=== PATIENT | female | born 1935 | race Caucasian/White ===

== ENCOUNTER 2023-05-24 17:30 | Inpatient (IN) ==
--- NOTE | 2023-05-24 18:24 | XRay Report ---
XR chest 1V portable CLINICAL HISTORY: cough, not feeling well TECHNIQUE: Single frontal radiograph of the chest was obtained. Comparison: None available at the time of this dictation. FINDINGS: An implanted pacemaker is seen. The cardiomediastinal silhouette is normal. The lungs are clear. No e vidence of pleural effusion or pneumothorax. IMPRESSION: No acute abnormalities and in particular no radiographic evidence of pneumonia. ACT 112: Negative or not required by law. Electronically signed by: Patrick Wright M.D. 05/24/2023 6:23 PM
[2023-05-24 18:27] LABS: Basophils # (auto) 0.05 K/uL (0.00-0.20); Basophils % (auto) 0.5 %; Eosinophils # (auto) 0.15 K/uL (0.00-0.50); Eosinophils % (auto) 1.6 %; Hematocrit (blood only) 43.6 % (37.0-47.0); Hemoglobin 14.7 g/dl (12.0-16.0); Immature Granulocytes # (auto) 0.06 K/uL (0.01-0.20); Immature Granulocytes % (auto) 0.6 %; Lymphocytes # (auto) 2.06 K/uL (1.20-3.40); Lymphocytes % (auto) 21.7 %; Mean Corpuscular Hemoglobin 29.2 pg (25.0-34.0); Mean Corpuscular Hgb Conc 33.7 g/dL (32.0-36.0); Mean Corpuscular Volume 86.7 fL (80.0-100.0); Mean Platelet Volume 9.7 fL (9.4-12.4); Monocytes # (auto) 0.84 K/uL (0.11-0.59); Monocytes % (auto) 8.9 %; Neutrophils # (auto) 6.32 K/uL (1.40-6.50); Neutrophils % (auto) 66.7 %; Platelet Count 345 K/uL (130-400); RDW Coefficient of Variation 12.8 % (11.5-14.5); Red Blood Count 5.03 M/uL (4.20-5.40); White Blood Count 9.48 K/ul (4.8-10.8)
[2023-05-24 18:37] LABS: Alanine Aminotransferase 16 U/L (7-52); Albumin Globulin Ratio 1.1 (0.9-2); Albumin Level 4.3 gm/dl (3.4-5.0); Alkaline Phosphatase 52 U/L (34-104); Anion Gap 5 (3-11); Aspartate Aminotransferase 22 U/L (13-39); BUN Creatinine Ratio 19.6 (10-20); Bilirubin,Total 0.6 mg/dl (0.2-1.0); Blood Urea Nitrogen 20 mg/dl (6-23); Calcium 10.8 mg/dl (8.6-10.3); Carbon Dioxide 27 mmol/L (21-32); Chloride 104 mmol/L (98-107); Est GFR (African American) 56.9 ml/min; Est GFR (Non-African American) 49.1 ml/min; Globulin 3.8 gm/dl (2.5-4.0); Glucose 108 mg/dl (70-99(Fasting)); Potassium 4.7 mmol/L (3.5-5.1); Sodium 136 mmol/L (136-145); Total Protein 8.1 gm/dl (6.0-8.3)
[2023-05-24 18:50] LABS: Base Excess VBG -0.8 mEq/L; HCO3 VBG 25 mmol/L; Oxygen Saturation VBG 96.7 %; PCO2 VBG 44 mmHg (38-50); PO2 VBG 76 mmHg; pH VBG 7.36 (7.36-7.41)
[2023-05-24 18:52] LABS: Creatine Kinase 42 U/L (26-192); Magnesium 2.2 mg/dl (1.7-2.4)
[2023-05-24] MEDS: SODIUM CHLORIDE 0.9% 1,000 ML IV SCH (18:54)
[2023-05-24 18:59] LABS: Troponin I High Sensitivity 5.7 pg/ml (0-14)
[2023-05-24 18:59] LABS: iSTAT Creatinine 1.1 mg/dl (0.6-1.3); iSTAT Hemoglobin 14.6 g/dl (12.0-16.0); iSTAT Ionized Calcium 1.21 mmol/l (1.12-1.32); iSTAT Potassium 4.5 mmol/L (3.3-5.0)
[2023-05-24 19:03] LABS: Adenovirus PCR Not Detected (NotDetected); Bordetella parapertussis PCR Not Detected (NotDetected); Bordetella pertussis PCR Not Detected (NotDetected); Chlamydia pneumoniae PCR Not Detected (NotDetected); Coronavirus 229E PCR Not Detected (NotDetected); Coronavirus CoV-2 (COVID19)PCR Not Detected (NotDetected); Coronavirus HKU1 PCR Not Detected (NotDetected); Coronavirus NL63 PCR Not Detected (NotDetected); Coronavirus OC43PCR Not Detected (NotDetected); Human Metapneumovirus PCR Not Detected (NotDetected); Influenza A PCR Not Detected (NotDetected); Influenza B PCR Not Detected (NotDetected); Mycoplasma pneumoniae PCR Not Detected (NotDetected); Parainfluenza Virus 1 PCR Not Detected (NotDetected); Parainfluenza Virus 2 PCR Not Detected (NotDetected); Parainfluenza Virus 3 PCR Not Detected (NotDetected); Parainfluenza Virus 4 PCR Not Detected (NotDetected); Respiratory Syncytial VirusPCR Not Detected (NotDetected); Rhinovirus/Enterovirus PCR Not Detected (NotDetected)
--- NOTE | 2023-05-24 19:58 | CT Scan Report ---
Exam(s): CT HEAD Without Contrast EXAM: CT Head Without Intravenous Contrast CLINICAL HISTORY: Reason for exam: ams. TECHNIQUE: Axial computed tomography images of the head/brain without intravenous contrast. CTDI is 50.58 mGy and DLP is 900.54 mGy-cm. Automated exposure control was utilized for the study. A dose lowering technique was utilized adhering to the principles of ALARA. COMPARISON: No relevant prior studies available. FINDINGS: No acute intracranial hemorrhage. No midline shift or mass effect. The territorial sapp-white matter differentiation is maintained throughout. Age-related cerebral volume loss. Periventricular and subcortical white matter hypoattenuation, consistent with chronic microangiopathy. The visualized orbits appear grossly unremarkable. The calvarium is intact. The visualized paranasal sinuses and mastoid air cells are grossly clear. IMPRESSION: No acute intracranial hemorrhage, midline shift, or mass effect. Electronically signed by: Pio Lehman MD 05/24/23 19:57 PM
[2023-05-24 20:39] LABS: Appearance Urine Clear (Clear); Bilirubin Urine Negative (Negative); Blood Urine Negative (Negative); Color Urine Yellow; Glucose Urine UA Negative (Negative); Ketones Urine Negative (Negative); Leukocyte Esterase Urine Negative (Negative); Nitrite Urine Negative (Negative); Protein Urine Negative (Negative); Specific Gravity Urine 1.018 (1.000-1.030); Urobilinogen Urine Negative (Negative); pH Urine 5.5 (4.5-7.5)
[2023-05-24] MEDS: OPTIRAY 320 125ml IV ONE (21:07)
[2023-05-24 21:12] LABS: Partial Thromboplastin Ratio 0.9; Partial Thromboplastin Time 25 Seconds (21-31); Prothrombin Time 10.9 Seconds (9.0-12.0)
--- NOTE | 2023-05-24 21:21 | CT Scan Report ---
Exam(s): CTA CHEST IV Amt: 117 ml opti 320 EXAM: CT Angiography Chest With Intravenous Contrast CLINICAL HISTORY: Reason for exam: ro pe. TECHNIQUE: Axial computed tomographic angiography images of the chest with intravenous contrast. Automated exposure control was utilized for the study. A dose lowering technique was utilized adhering to the principles of ALARA. MIP reconstructed images were created and reviewed. COMPARISON: No relevant prior studies available. FINDINGS: Pulmonary arteries: Unremarkable. No acute pulmonary embolism. Aorta: No acute findings. No thoracic aortic aneurysm. Lungs: Dependent atelectasis. No pneumonia, pleural effusion, or pneumothorax. No mass. Pleural space: See above. Heart: Cardiomegaly. No significant pericardial effusion. No evidence of RV dysfunction. Bones/joints: No acute fracture. No dislocation. Soft tissues: Unremarkable. Lymph nodes: Unremarkable. No enlarged lymph nodes. Kidneys and ureters: RIGHT upper pole renal cyst measuring 3.7 cm. Tubes, lines and devices: Pacemaker leads. IMPRESSION: 1. Dependent atelectasis. No pneumonia, pleural effusion, or pneumothorax. 2. No acute pulmonary embolism. Electronically signed by: Pio Lehman MD 05/24/23 21:20 PM
--- NOTE | 2023-05-24 21:30 | CT Scan Report ---
Exam(s): CT ABDOMEN + PELVIS With Contrast IV Amt: 117 ml opti 320 EXAM: CT Abdomen and Pelvis With Intravenous Contrast CLINICAL HISTORY: Reason for exam: llq pain. TECHNIQUE: Axial computed tomography images of the abdomen and pelvis with intravenous contrast. Automated exposure control was utilized for the study. A dose lowering technique was utilized adhering to the principles of ALARA. CONTRAST: Patient received 117 ml opti 320 of IV contrast COMPARISON: No relevant prior studies available. FINDINGS: Lung bases: Unremarkable. No mass. No consolidation. Heart: Cardiomegaly. ABDOMEN: Liver: Hepatic steatosis. Gallbladder and bile ducts: Cholelithiasis. No ductal dilation. Pancreas: Unremarkable. No mass. No ductal dilation. Spleen: Unremarkable. No splenomegaly. Adrenals: Unremarkable. No mass. Kidneys and ureters: No hydronephrosis or delayed nephrogram. Renal cysts. Stomach and bowel: Diverticulosis, without acute diverticulitis. No small bowel obstruction. No free intraperitoneal air. PELVIS: Appendix: No findings to suggest acute appendicitis. Bladder: Unremarkable. Normal urinary bladder. Reproductive: Hysterectomy. ABDOMEN and PELVIS: Intraperitoneal space: Unremarkable. No free air. No significant fluid collection. Bones/joints: Degenerative changes of the spine. Posterior fusion at L4-L5. No acute fracture. No dislocation. Soft tissues: Unremarkable. Vasculature: Atherosclerotic changes of the aorta. No abdominal aortic aneurysm. Lymph nodes: Unremarkable. No enlarged lymph nodes. Tubes, lines and devices: Pacemaker leads. IMPRESSION: 1. Hepatic steatosis. 2. Cholelithiasis. 3. Hysterectomy. 4. Diverticulosis, without acute diverticulitis. No small bowel obstruction. No free intraperitoneal air. Electronically signed by: Pio Lehman MD 05/24/23 21:29 PM
--- NOTE | 2023-05-24 22:04 | Emergency Department Note ---
History of Present Illness General Chief complaint: Illness Stated complaint: UNABLE TO AMBULATE/UTI Time Seen by Provider: 05/24/23 18:17 History of Present Illness Provider complaint: Weakness 87-year-old female presents emergency department for weakness. Patient is here with her family and the family reports that the patient was having chills and fever starting on . Family reports that the patient came very weak and was having difficulty walking. They went to the [facility] emergency department on Wednesday and were diagnosed with UTI and started on Keflex. They stated they wanted to be admitted to the hospital however the doctors at [facility] stated her vitals were normal and they cannot admitted to the hospital. Home Medications Medication Instructions Recorded Confirmed Type amlodipine 5 mg tablet 5 mg PO DAILY 05/24/23 05/24/23 History cephalexin 500 mg capsule 500 mg PO BID 05/24/23 05/24/23 History cholecalciferol (vitamin D3) 125 5,000 unit PO DAILY 05/24/23 05/24/23 History mcg (5,000 unit) tablet gabapentin 100 mg capsule 100 mg PO TID 05/24/23 05/24/23 History losartan 100 mg tablet 100 mg PO DAILY 05/24/23 05/24/23 History metoprolol tartrate 25 mg tablet 25 mg PO BID 05/24/23 05/24/23 History propranolol 60 mg capsule,24 60 mg PO DAILY 05/24/23 05/24/23 History hr,extended release Allergies Allergy/AdvReac Type Severity Reaction Status Date / Time acetaminophen [From Tylenol] Allergy Unknown Please see Unverified 05/24/23 20:14 comment. Past Med/Surg History Medical History No pertinent family history HTN (hypertension) Surgical History No pertinent past surgical history Social History Smoking Status: Never smoker Feels Safe at Home: Yes Physical Exam Vital Signs Vital Signs - 24 hr 05/24/23 17:39 05/24/23 18:32 05/24/23 18:47 Temperature 37.3 C Temperature Source Oral Pulse Rate 61 Pulse Rate [Apical] 86 Respiratory Rate 19 22 Respiratory Effort / Characteristics Non-Labored Spontaneous Respiratory Depth Normal Normal Respiratory Pattern Regular Blood Pressure 192/97 H Blood Pressure [Right Arm] 178/79 H Blood Pressure Mean 128 Blood Pressure Mean [Right Arm] 112 Blood Pressure Position [Right Arm] Pulse Oximetry 92 87 L 97 Oxygen Delivery Method Room Air Room Air Nasal Cannula Oxygen Flow Rate 2 Sepsis Recent Fever Within 48 Hours No Sepsis New/Unexplained Change in Mental Status No Sepsis Action Taken by Nursing No Action Required 05/24/23 18:50 05/24/23 19:00 05/24/23 20:15 Temperature Temperature Source Pulse Rate 60 Pulse Rate [Apical] 60 60 Respiratory Rate 17 18 Respiratory Effort / Characteristics Non-Labored Spontaneous Non-Labored Spontaneous Respiratory Depth Normal Normal Respiratory Pattern Regular Regular Blood Pressure Blood Pressure [Right Arm] 182/85 H 198/105 H Blood Pressure Mean Blood Pressure Mean [Right Arm] 117 136 Blood Pressure Position [Right Arm] Semi-fowlers Semi-fowlers Pulse Oximetry 96 96 Oxygen Delivery Method Room Air Nasal Cannula Oxygen Flow Rate 2 Sepsis Recent Fever Within 48 Hours Sepsis New/Unexplained Change in Mental Status Sepsis Action Taken by Nursing Physical Exam HENT: Exam performed. -Head: Normocephalic and atraumatic. -Right Ear: External ear normal. No mastoid erythema -Left Ear: External ear normal. No mastoid erythema -Mouth/Throat: The oropharynx is clear and moist. No trismus in the jaw. No dental abscesses or uvula swelling. No oropharyngeal exudate or tonsillar abscesses. EYES: Conjunctivae and EOM are normal. Pupils are equal, round, and reactive to light. Right eye exhibits no discharge. Left eye exhibits no discharge. No scleral icterus. NECK: Normal range of motion. Neck supple. No JVD present. CV: Normal rate, regular rhythm, normal heart sounds and intact distal pulses. There is no peripheral edema. Palpable radial pulses bue. PULM/CHEST: Effort normal and breath sounds normal. No respiratory distress. No stridor. She has no wheezes. She has no rales. ABD: The abdomen is soft. Bowel sounds are normal. She has no distension. No mass is present. There is tenderness to palpation of the left lower quadrant. There is no rebound, no guarding, no Severino's sign and no tenderness at McBurney's point. Rovsig negative NEURO: Motor and sensation grossly intact. Course Course 1816: The patient was evaluated in room B11B. A complete history and physical exam was performed Cardiac monitoring: An order was placed for continuous cardiac monitoring. The monitor shows a rate of 60 with sinus rhythm interpreted by me Patient was found to be hypoxic on room air. Supplemental oxygen was applied via nasal cannula which improved the patient's oxygen saturation. 2200: Vital signs stable. Labs and imaging are within normal limits. Patient is hypoxic and family reports that she is too weak to go home. Patient will be admitted to the [facility] team Dr. Jessica's team notified. Administered Medications Sodium Chloride (Nss) 1,000 mls @ 125 mls/hr IV .Q8H FLORES Stop: 06/23/23 18:44 Last Admin: 05/24/23 18:54 Dose: 125 mls/hr Documented By: HS Discontinued Medications Ioversol (Optiray 320 125ml) 117 ml IV ONCE ONE Stop: 05/24/23 21:07 Last Admin: 05/24/23 21:07 Dose: 117 ml Documented By: SHYANNE Medical Decision Making Laboratory Data Attestation: I reviewed the patient's lab results. 05/24/23 18:00 05/24/23 18:00 Lab Results 05/24/23 05/24/23 05/24/23 Range/Units 18:00 18:36 18:42 WBC 9.48 (4.8-10.8) K/ul RBC 5.03 (4.20-5.40) M/uL Hgb 14.7 (12.0-16.0) g/dl POC Hgb 14.6 (12.0-16.0) g/dl Hct 43.6 (37.0-47.0) % POC Hct 43 (37-47) % MCV 86.7 (80.0-100.0) fL MCH 29.2 (25.0-34.0) pg MCHC 33.7 (32.0-36.0) g/dL RDW Std Deviation 40.0 (36.4-46.3) fL RDW Coeff of Von 12.8 (11.5-14.5) % Plt Count 345 (130-400) K/uL MPV 9.7 (9.4-12.4) fL Immature Gran % (Auto) 0.6 % Neut % (Auto) 66.7 % Lymph % (Auto) 21.7 % [place] % (Auto) 8.9 % Eos % (Auto) 1.6 % Baso % (Auto) 0.5 % Neut # (Auto) 6.32 (1.40-6.50) K/uL Lymph # (Auto) 2.06 (1.20-3.40) K/uL [place] # (Auto) 0.84 H (0.11-0.59) K/uL Eos # (Auto) 0.15 (0.00-0.50) K/uL Baso # (Auto) 0.05 (0.00-0.20) K/uL Immature Gran # (Auto) 0.06 (0.01-0.20) K/uL PT Cancelled INR Cancelled APTT Cancelled PTT Ratio Cancelled VBG pH 7.36 (7.36-7.41) VBG pCO2 44 (38-50) mmHg VBG pO2 76 mmHg VBG HCO3 25 mmol/L VBG O2 Saturation 96.7 % VBG Base Excess -0.8 mEq/L POC Sodium 137 (135-144) mmol/L Sodium 136 (136-145) mmol/L POC Potassium 4.5 (3.3-5.0) mmol/L Potassium 4.7 (3.5-5.1) mmol/L POC Chloride 107 (101-112) mmol/L Chloride 104 (98-107) mmol/L Carbon Dioxide 27 (21-32) mmol/L POC Total CO2 25 (24-31) mmol/L Anion Gap 5 (3-11) POC Anion Gap 10.0 L (16-25) mmol/L POC BUN 22 H (7-18) mg/dl BUN 20 (6-23) mg/dl Creatinine 1.02 (0.6-1.2) mg/dl POC Creatinine 1.1 (0.6-1.3) mg/dl Est Cr Clr Drug Dosing Not Reportable Est GFR ( Amer) 56.9 ml/min Est GFR (Non-Af Amer) 49.1 ml/min BUN/Creatinine Ratio 19.6 (10-20) Glucose 108 H (70-99(Fasting)) mg/dl POC Glucose (other) 111 H (70-99) mg/dl Lactate 1.2 (0.4-2.0) mmol/L Calcium 10.8 H (8.6-10.3) mg/dl POC Ioniz Calcium Nataliya 1.21 (1.12-1.32) mmol/l Magnesium 2.2 (1.7-2.4) mg/dl Total Bilirubin 0.6 (0.2-1.0) mg/dl AST 22 (13-39) U/L ALT 16 (7-52) U/L Alkaline Phosphatase 52 (34-104) U/L Ammonia Total Creatine Kinase 42 (26-192) U/L Troponin I High Sens 5.7 (0-14) pg/ml B-Natriuretic Peptide 114 H (0-100) pg/ml Total Protein 8.1 (6.0-8.3) gm/dl Albumin 4.3 (3.4-5.0) gm/dl Globulin 3.8 (2.5-4.0) gm/dl Albumin/Globulin Ratio 1.1 (0.9-2) Procalcitonin 0.04 (0-0.5) ng/ml Urine Color Urine Appearance (Clear) Urine pH (4.5-7.5) Ur Specific [place] (1.000-1.030) Urine Protein (Negative) Urine Glucose (UA) (Negative) Urine Ketones (Negative) Urine Blood (Negative) Urine Nitrite (Negative) Urine Bilirubin (Negative) Urine Urobilinogen (Negative) Ur Leukocyte Esterase (Negative) Adenovirus (PCR) Not Detected (NotDetected) B. pertussis DNA (PCR) Not Detected (NotDetected) B.parapertussis DNA PCR Not Detected (NotDetected) C. pneumoniae DNA (PCR) Not Detected (NotDetected) Coronavirus OC43 (PCR) Not Detected (NotDetected) Coronavirus HKU1 (PCR) Not Detected (NotDetected) Coronavirus 229E (PCR) Not Detected (NotDetected) SARS-CoV-2 (PCR) Not Detected (NotDetected) Coronavirus NL63 (PCR) Not Detected (NotDetected) Human Metapneumovir PCR Not Detected (NotDetected) Influenza Type A (PCR) Not Detected (NotDetected) Influenza Type B (PCR) Not Detected (NotDetected) M. pneumoniae (PCR) Not Detected (NotDetected) Parainfluenza 1 (PCR) Not Detected (NotDetected) Parainfluenza 2 (PCR) Not Detected (NotDetected) Parainfluenza 3 (PCR) Not Detected (NotDetected) Parainfluenza 4 (PCR) Not Detected (NotDetected) RSV (PCR) Not Detected (NotDetected) Entero/Rhino (PCR) Not Detected (NotDetected) 05/24/23 05/24/23 Range/Units 20:20 20:27 WBC (4.8-10.8) K/ul RBC (4.20-5.40) M/uL Hgb (12.0-16.0) g/dl POC Hgb (12.0-16.0) g/dl Hct (37.0-47.0) % POC Hct (37-47) % MCV (80.0-100.0) fL MCH (25.0-34.0) pg MCHC (32.0-36.0) g/dL RDW Std Deviation (36.4-46.3) fL RDW Coeff of Von (11.5-14.5) % Plt Count (130-400) K/uL MPV (9.4-12.4) fL Immature Gran % (Auto) % Neut % (Auto) % Lymph % (Auto) % [place] % (Auto) % Eos % (Auto) % Baso % (Auto) % Neut # (Auto) (1.40-6.50) K/uL Lymph # (Auto) (1.20-3.40) K/uL [place] # (Auto) (0.11-0.59) K/uL Eos # (Auto) (0.00-0.50) K/uL Baso # (Auto) (0.00-0.20) K/uL Immature Gran # (Auto) (0.01-0.20) K/uL PT 10.9 INR 1.0 APTT 25 PTT Ratio 0.9 VBG pH (7.36-7.41) VBG pCO2 (38-50) mmHg VBG pO2 mmHg VBG HCO3 mmol/L VBG O2 Saturation % VBG Base Excess mEq/L POC Sodium (135-144) mmol/L Sodium (136-145) mmol/L POC Potassium (3.3-5.0) mmol/L Potassium (3.5-5.1) mmol/L POC Chloride (101-112) mmol/L Chloride (98-107) mmol/L Carbon Dioxide (21-32) mmol/L POC Total CO2 (24-31) mmol/L Anion Gap (3-11) POC Anion Gap (16-25) mmol/L POC BUN (7-18) mg/dl BUN (6-23) mg/dl Creatinine (0.6-1.2) mg/dl POC Creatinine (0.6-1.3) mg/dl Est Cr Clr Drug Dosing Est GFR ( Amer) ml/min Est GFR (Non-Af Amer) ml/min BUN/Creatinine Ratio (10-20) Glucose (70-99(Fasting)) mg/dl POC Glucose (other) (70-99) mg/dl Lactate (0.4-2.0) mmol/L Calcium (8.6-10.3) mg/dl POC Ioniz Calcium Nataliya (1.12-1.32) mmol/l Magnesium (1.7-2.4) mg/dl Total Bilirubin (0.2-1.0) mg/dl AST (13-39) U/L ALT (7-52) U/L Alkaline Phosphatase (34-104) U/L Ammonia TNP Total Creatine Kinase (26-192) U/L Troponin I High Sens (0-14) pg/ml B-Natriuretic Peptide (0-100) pg/ml Total Protein (6.0-8.3) gm/dl Albumin (3.4-5.0) gm/dl Globulin (2.5-4.0) gm/dl Albumin/Globulin Ratio (0.9-2) Procalcitonin (0-0.5) ng/ml Urine Color Yellow Urine Appearance Clear (Clear) Urine pH 5.5 (4.5-7.5) Ur Specific [place] 1.018 (1.000-1.030) Urine Protein Negative (Negative) Urine Glucose (UA) Negative (Negative) Urine Ketones Negative (Negative) Urine Blood Negative (Negative) Urine Nitrite Negative (Negative) Urine Bilirubin Negative (Negative) Urine Urobilinogen Negative (Negative) Ur Leukocyte Esterase Negative (Negative) Adenovirus (PCR) (NotDetected) B. pertussis DNA (PCR) (NotDetected) B.parapertussis DNA PCR (NotDetected) C. pneumoniae DNA (PCR) (NotDetected) Coronavirus OC43 (PCR) (NotDetected) Coronavirus HKU1 (PCR) (NotDetected) Coronavirus 229E (PCR) (NotDetected) SARS-CoV-2 (PCR) (NotDetected) Coronavirus NL63 (PCR) (NotDetected) Human Metapneumovir PCR (NotDetected) Influenza Type A (PCR) (NotDetected) Influenza Type B (PCR) (NotDetected) M. pneumoniae (PCR) (NotDetected) Parainfluenza 1 (PCR) (NotDetected) Parainfluenza 2 (PCR) (NotDetected) Parainfluenza 3 (PCR) (NotDetected) Parainfluenza 4 (PCR) (NotDetected) RSV (PCR) (NotDetected) Entero/Rhino (PCR) (NotDetected) Imaging Data Attestation: I personally reviewed and interpreted this imaging study as follows: My Impression: Chest x-ray negative. Airway clear. No pneumothorax. No consolidation. No cardiomegaly or cephalization.. No free air under the diaphragm. No fractures of the skeletal structures. Radiologist's Impression: Chest X-Ray 05/24/23 18:01 XR chest 1V portable CLINICAL HISTORY: cough, not feeling well TECHNIQUE: Single frontal radiograph of the chest was obtained. Comparison: None available at the time of this dictation. FINDINGS: An implanted pacemaker is seen. The cardiomediastinal silhouette is normal. The lungs are clear. No evidence of pleural effusion or pneumothorax. IMPRESSION: No acute abnormalities and in particular no radiographic evidence of pneumonia. ACT 112: Negative or not required by law. Electronically signed by: Patrick Wright M.D. 05/24/2023 6:[address] 05/24/23 18:17 Exam(s): CT HEAD Without Contrast EXAM: CT Head Without Intravenous Contrast CLINICAL HISTORY: Reason for exam: ams. TECHNIQUE: Axial computed tomography images of the head/brain without intravenous contrast. CTDI is 50.58 mGy and DLP is 900.54 mGy-cm. Automated exposure control was utilized for the study. A dose lowering technique was utilized adhering to the principles of ALARA. COMPARISON: No relevant prior studies available. FINDINGS: No acute intracranial hemorrhage. No midline shift or mass effect. The territorial sapp-white matter differentiation is maintained throughout. Age-related cerebral volume loss. Periventricular and subcortical white matter hypoattenuation, consistent with chronic microangiopathy. The visualized orbits appear grossly unremarkable. The calvarium is intact. The visualized paranasal sinuses and mastoid air cells are grossly clear. IMPRESSION: No acute intracranial hemorrhage, midline shift, or mass effect. Electronically signed by: Pio Lehman MD 05/24/23 19:57 PM Abdomen/Pelvis CT 05/24/23 18:32 Exam(s): CT ABDOMEN + PELVIS With Contrast IV Amt: 117 ml opti 320 EXAM: CT Abdomen and Pelvis With Intravenous Contrast CLINICAL HISTORY: Reason for exam: llq pain. TECHNIQUE: Axial computed tomography images of the abdomen and pelvis with intravenous contrast. Automated exposure control was utilized for the study. A dose lowering technique was utilized adhering to the principles of ALARA. CONTRAST: Patient received 117 ml opti 320 of IV contrast COMPARISON: No relevant prior studies available. FINDINGS: Lung bases: Unremarkable. No mass. No consolidation. Heart: Cardiomegaly. ABDOMEN: Liver: Hepatic steatosis. Gallbladder and bile ducts: Cholelithiasis. No ductal dilation. Pancreas: Unremarkable. No mass. No ductal dilation. Spleen: Unremarkable. No splenomegaly. Adrenals: Unremarkable. No mass. Kidneys and ureters: No hydronephrosis or delayed nephrogram. Renal cysts. Stomach and bowel: Diverticulosis, without acute diverticulitis. No small bowel obstruction. No free intraperitoneal air. PELVIS: Appendix: No findings to suggest acute appendicitis. Bladder: Unremarkable. Normal urinary bladder. Reproductive: Hysterectomy. ABDOMEN and PELVIS: Intraperitoneal space: Unremarkable. No free air. No significant fluid collection. Bones/joints: Degenerative changes of the spine. Posterior fusion at L4-L5. No acute fracture. No dislocation. Soft tissues: Unremarkable. Vasculature: Atherosclerotic changes of the aorta. No abdominal aortic aneurysm. Lymph nodes: Unremarkable. No enlarged lymph nodes. Tubes, lines and devices: Pacemaker leads. IMPRESSION: 1. Hepatic steatosis. 2. Cholelithiasis. 3. Hysterectomy. 4. Diverticulosis, without acute diverticulitis. No small bowel obstruction. No free intraperitoneal air. Electronically signed by: Pio Lehman MD 05/24/23 21:29 PM Chest CTA 05/24/23 18:32 Exam(s): CTA CHEST IV Amt: 117 ml opti 320 EXAM: CT Angiography Chest With Intravenous Contrast CLINICAL HISTORY: Reason for exam: ro pe. TECHNIQUE: Axial computed tomographic angiography images of the chest with intravenous contrast. Automated exposure control was utilized for the study. A dose lowering technique was utilized adhering to the principles of ALARA. MIP reconstructed images were created and reviewed. COMPARISON: No relevant prior studies available. FINDINGS: Pulmonary arteries: Unremarkable. No acute pulmonary embolism. Aorta: No acute findings. No thoracic aortic aneurysm. Lungs: Dependent atelectasis. No pneumonia, pleural effusion, or pneumothorax. No mass. Pleural space: See above. Heart: Cardiomegaly. No significant pericardial effusion. No evidence of RV dysfunction. Bones/joints: No acute fracture. No dislocation. Soft tissues: Unremarkable. Lymph nodes: Unremarkable. No enlarged lymph nodes. Kidneys and ureters: RIGHT upper pole renal cyst measuring 3.7 cm. Tubes, lines and devices: Pacemaker leads. IMPRESSION: 1. Dependent atelectasis. No pneumonia, pleural effusion, or pneumothorax. 2. No acute pulmonary embolism. Electronically signed by: Pio Lehman MD 05/24/23 21:20 PM ECG Data Attestation: I personally reviewed and interpreted this ECG as follows: Additional Comments: Paced rhythm with a rate of 60. [place] 274 QRS 84 QTc 400. No ectopy. [facility] Narrative 1817: The patient was evaluated in room B11B. A complete history and physical exam was performed Cardiac monitoring: An order was placed for continuous cardiac monitoring. The monitor shows a rate of 60 with sinus rhythm interpreted by me Patient was found to be hypoxic on room air. Supplemental oxygen was applied via nasal cannula which improved the patient's oxygen saturation. 220: Vital signs stable. Labs and imaging are within normal limits. Patient is hypoxic and family reports that she is too weak to go home. Patient will be admitted to the [facility] team Dr. Jessica's team notified. Impression & Plan Hypoxia Discharge Plan Visit Data Chief Complaint: Illness Stated Complaint: UNABLE TO AMBULATE/UTI ED Provider: Allan Ann Discharge Problem: Hypoxia Patient Disposition: Admitted As Inpatient Forms Stand Alone Forms: My [facility] Prescriptions Prescriptions: No Action propranolol 60 mg capsule,extended release 24 hr 60 mg PO DAILY amlodipine 5 mg tablet 5 mg PO DAILY cephalexin 500 mg capsule 500 mg PO BID Rx Instructions: Start Date 05/22/23 - End Date 05/29/23. Patient has taken 5 doses as of 05/24/23. gabapentin 100 mg capsule 100 mg PO TID losartan 100 mg tablet 100 mg PO DAILY metoprolol tartrate 25 mg tablet 25 mg PO BID cholecalciferol (vitamin D3) 125 mcg (5,000 unit) tablet 5,000 unit PO DAILY Referrals Referrals: WINSOME LIVE DO [Other]
--- NOTE | 2023-05-24 22:46 | History & Physical Report ---
Date of Service May 24, 2023 Assessment & Plan (1) Urinary tract infection: (2) Hypoxia: (3) HTN (hypertension): (4) Presence of cardiac pacemaker: (5) Peripheral neuropathy: (6) Dehydration: Plan Urinary tract infection/mild dehydration- Obtain urine culture sensitivity results from [place] emergency department from 3 days ago Stop Keflex Ceftriaxone 2 g IV daily NSS at 125 MLS per hour Generalized weakness/ambulatory dysfunction- CT head noncontrast negative CTA chest PE protocol was negative CT abdomen and pelvis with no acute findings but does show hepatic steatosis, cholelithiasis, hysterectomy, and diverticulosis Likely secondary to effects of having urinary tract infection Consult PT/OT Hypoxia- Presence of atelectasis on chest x-ray/CTA chest, but otherwise normal-appearing and no sign of active infection or pulmonary edema Incentive spirometry Hypertension/presence of cardiac pacemaker- Patient with paced rhythm in the emergency department at 60 bpm Continue amlodipine, losartan, Toprol tartrate and propranolol Peripheral neuropathy- Continue gabapentin History of Present Illness Chief Complaint: The patient presents to the emergency department with her daughter, due to concerns regarding initial symptoms of a urinary tract infection, for which she was seen at [place] emergency department 3 nights ago and prescribed Keflex, and since that time she has had progressive generalized weakness and difficulty ambulating. Primary Care Provider: WINSOME LIVE DO The patient is a 87-year-old female with a past medical history including hypertension, peripheral neuropathy, vitamin D deficiency, status post pacer placement and urinary tract infection. She presents to the emergency department as noted above. She continues to have some symptoms of urinary tract infection, but over the past 3 days has had significant progression of generalized weakness and difficulty with ambulation. She has not had these type of symptoms in the past. She does live alone in [place], with family close by. Allergies Allergy/AdvReac Type Severity Reaction Status Date / Time acetaminophen [From Tylenol] Allergy Unknown Please see Unverified 05/24/23 20:14 comment. Home Medications Medication Instructions Recorded Confirmed Type amlodipine 5 mg tablet 5 mg PO DAILY 05/24/23 05/24/23 History cephalexin 500 mg capsule 500 mg PO BID 05/24/23 05/24/23 History cholecalciferol (vitamin D3) 125 5,000 unit PO DAILY 05/24/23 05/24/23 History mcg (5,000 unit) tablet gabapentin 100 mg capsule 100 mg PO TID 05/24/23 05/24/23 History losartan 100 mg tablet 100 mg PO DAILY 05/24/23 05/24/23 History metoprolol tartrate 25 mg tablet 25 mg PO BID 05/24/23 05/24/23 History propranolol 60 mg capsule,24 60 mg PO DAILY 05/24/23 05/24/23 History hr,extended release Past Med/Surg History Medical History (Updated 05/25/23 @ 00:14 by Guanaco Frankel MD) Peripheral neuropathy Presence of cardiac pacemaker Urinary tract infection No pertinent family history HTN (hypertension) Surgical History No pertinent past surgical history Social History Smoking Status: Never smoker Feels Safe at Home: Yes Review of Systems Review of Systems: The patient denies chest pain, palpitations, shortness of breath, dyspnea on exertion, cough, lower extremity swelling, sore throat, fevers, chills, sweats, nausea, vomiting, diarrhea , constipation, abdominal pain, pelvic pain, blood in urine or stool, lightheadedness, dizziness, headache, memory loss, loss of consciousness, rash, abnormal bruising or bleeding, focal weakness, numbness or tingling in arms or legs, generalized arthralgias or myalgias, back or neck pain, or night sweats. The review of systems is otherwise negative other than for that already noted above, and at least 10 systems have been reviewed. Physical Exam Physical Exam: The patient is awake, alert and oriented 3, well developed and well nourished, normocephalic and atraumatic, lying in bed and in no acute distress. HEENT--PERRL, EOMI, mucous membranes and oropharynx mildly dry. Neck--supple. No JVD. No bruits. Thyroid normal, trachea midline, no adenopathy. Heart--normal S1 and S2. No murmurs, rubs or gallops. Lungs--clear bilaterally, no respiratory distress, no accessory muscle use. Abdomen--normal bowel sounds and soft. Nontender. Nondistended Extremities--No edema. Dermatologic--normal skin turgor, normal color, no abnormal lymph nodes, no rash. Neurologic--cranial nerves II through XII grossly intact. Rheumatologic--normal range of motion. Psychiatric--normal affect. Results & Data Results & Data Vital Signs (Past 12 Hours) Vital Signs Temp Pulse Pulse Resp BP BP Pulse Ox 05/24/23 20:15 60 18 198/105 H 96 05/24/23 19:00 60 17 182/85 H 96 05/24/23 18:50 60 05/24/23 18:47 97 05/24/23 18:32 86 22 178/79 H 87 L 05/24/23 17:39 37.3 C 61 19 192/97 H 92 O2 Del Method O2 Flow Rate 05/24/23 20:15 Nasal Cannula 2 05/24/23 19:00 Room Air 05/24/23 18:50 05/24/23 18:47 Nasal Cannula 2 05/24/23 18:32 Room Air 05/24/23 17:39 Room Air Laboratory Results Laboratory Results WBC 9.48 K/ul (4.8-10.8) 05/24/23 18:00 RBC 5.03 M/uL (4.20-5.40) 05/24/23 18:00 Hgb 14.7 g/dl (12.0-16.0) 05/24/23 18:00 POC Hgb 14.6 g/dl (12.0-16.0) 05/24/23 18:42 Hct 43.6 % (37.0-47.0) 05/24/23 18:00 POC Hct 43 % (37-47) 05/24/23 18:42 MCV 86.7 fL (80.0-100.0) 05/24/23 18:00 MCH 29.2 pg (25.0-34.0) 05/24/23 18:00 MCHC 33.7 g/dL (32.0-36.0) 05/24/23 18:00 RDW Std Deviation 40.0 fL (36.4-46.3) 05/24/23 18:00 RDW Coeff of Von 12.8 % (11.5-14.5) 05/24/23 18:00 Plt Count 345 K/uL (130-400) 05/24/23 18:00 MPV 9.7 fL (9.4-12.4) 05/24/23 18:00 Immature Gran % (Auto) 0.6 % 05/24/23 18:00 Neut % (Auto) 66.7 % 05/24/23 18:00 Lymph % (Auto) 21.7 % 05/24/23 18:00 [place] % (Auto) 8.9 % 05/24/23 18:00 Eos % (Auto) 1.6 % 05/24/23 18:00 Baso % (Auto) 0.5 % 05/24/23 18:00 Neut # (Auto) 6.32 K/uL (1.40-6.50) 05/24/23 18:00 Lymph # (Auto) 2.06 K/uL (1.20-3.40) 05/24/23 18:00 [place] # (Auto) 0.84 K/uL (0.11-0.59) H 05/24/23 18:00 Eos # (Auto) 0.15 K/uL (0.00-0.50) 05/24/23 18:00 Baso # (Auto) 0.05 K/uL (0.00-0.20) 05/24/23 18:00 Immature Gran # (Auto) 0.06 K/uL (0.01-0.20) 05/24/23 18:00 PT 10.9 Seconds (9.0-12.0) 05/24/23 20:27 INR 1.0 (0.9-1.1) 05/24/23 20: APTT 25 Seconds (21-31) 05/24/23 20: PTT Ratio 0.9 05/24/23 20:27 VBG pH 7.36 (7.36-7.41) 05/24/23 18:36 VBG pCO2 44 mmHg (38-50) 05/24/23 18:36 VBG pO2 76 mmHg 05/24/23 18:36 VBG HCO3 25 mmol/L 05/24/23 18:36 VBG O2 Saturation 96.7 % 05/24/23 18:36 VBG Base Excess -0.8 mEq/L 05/24/23 18:36 POC Sodium 137 mmol/L (135-144) 05/24/23 18:42 Sodium 136 mmol/L (136-145) 05/24/23 18:00 POC Potassium 4.5 mmol/L (3.3-5.0) 05/24/23 18:42 Potassium 4.7 mmol/L (3.5-5.1) 05/24/23 18:00 POC Chloride 107 mmol/L (101-112) 05/24/23 18:42 Chloride 104 mmol/L (98-107) 05/24/23 18:00 Carbon Dioxide 27 mmol/L (21-32) 05/24/23 18:00 POC Total CO2 25 mmol/L (24-31) 05/24/23 18:42 Anion Gap 5 (3-11) 05/24/23 18:00 POC Anion Gap 10.0 mmol/L (16-25) L 05/24/23 18:42 POC BUN 22 mg/dl (7-18) H 05/24/23 18:42 BUN 20 mg/dl (6-23) 05/24/23 18:00 Creatinine 1.02 mg/dl (0.6-1.2) 05/24/23 18:00 POC Creatinine 1.1 mg/dl (0.6-1.3) 05/24/23 18:42 Est Cr Clr Drug Dosing Not Reportable 05/24/23 18:00 Est GFR ( Amer) 56.9 ml/min 05/24/23 18:00 Est GFR (Non-Af Amer) 49.1 ml/min 05/24/23 18:00 BUN/Creatinine Ratio 19.6 (10-20) 05/24/23 18:00 Glucose 108 mg/dl (70-99(Fasting)) H 05/24/23 18:00 POC Glucose (other) 111 mg/dl (70-99) H 05/24/23 18:42 Lactate 1.2 mmol/L (0.4-2.0) 05/24/23 18:36 Calcium 10.8 mg/dl (8.6-10.3) H 05/24/23 18:00 POC Ioniz Calcium Nataliya 1.21 mmol/l (1.12-1.32) 05/24/23 18:42 Magnesium 2.2 mg/dl (1.7-2.4) 05/24/23 18:00 Total Bilirubin 0.6 mg/dl (0.2-1.0) 05/24/23 18:00 AST 22 U/L (13-39) 05/24/23 18:00 ALT 16 U/L (7-52) 05/24/23 18:00 Alkaline Phosphatase 52 U/L (34-104) 05/24/23 18:00 Ammonia 30.0 umol/L (18-72) 05/24/23 21:28 Total Creatine Kinase 42 U/L (26-192) 05/24/23 18:00 Troponin I High Sens 5.7 pg/ml (0-14) 05/24/23 18:00 B-Natriuretic Peptide 114 pg/ml (0-100) H 05/24/23 18:36 Total Protein 8.1 gm/dl (6.0-8.3) 05/24/23 18:00 Albumin 4.3 gm/dl (3.4-5.0) 05/24/23 18:00 Globulin 3.8 gm/dl (2.5-4.0) 05/24/23 18:00 Albumin/Globulin Ratio 1.1 (0.9-2) 05/24/23 18:00 Procalcitonin 0.04 ng/ml (0-0.5) 05/24/23 18:00 Urine Color Yellow 05/24/23 20:20 Urine Appearance Clear (Clear) 05/24/23 20:20 Urine pH 5.5 (4.5-7.5) 05/24/23 20:20 Ur Specific [place] 1.018 (1.000-1.030) 05/24/23 20:20 Urine Protein Negative (Negative) 05/24/23 20:20 Urine Glucose (UA) Negative (Negative) 05/24/23 20:20 Urine Ketones Negative (Negative) 05/24/23 20:20 Urine Blood Negative (Negative) 05/24/23 20:20 Urine Nitrite Negative (Negative) 05/24/23 20:20 Urine Bilirubin Negative (Negative) 05/24/23 20:20 Urine Urobilinogen Negative (Negative) 05/24/23 20:20 Ur Leukocyte Esterase Negative (Negative) 05/24/23 20:20 Adenovirus (PCR) Not Detected (NotDetected) 05/24/23 18:00 B. pertussis DNA (PCR) Not Detected (NotDetected) 05/24/23 18:00 B.parapertussis DNA PCR Not Detected (NotDetected) 05/24/23 18:00 C. pneumoniae DNA (PCR) Not Detected (NotDetected) 05/24/23 18:00 Coronavirus OC43 (PCR) Not Detected (NotDetected) 05/24/23 18:00 Coronavirus HKU1 (PCR) Not Detected (NotDetected) 05/24/23 18:00 Coronavirus 229E (PCR) Not Detected (NotDetected) 05/24/23 18:00 SARS-CoV-2 (PCR) Not Detected (NotDetected) 05/24/23 18:00 Coronavirus NL63 (PCR) Not Detected (NotDetected) 05/24/23 18:00 Human Metapneumovir PCR Not Detected (NotDetected) 05/24/23 18:00 Influenza Type A (PCR) Not Detected (NotDetected) 05/24/23 18:00 Influenza Type B (PCR) Not Detected (NotDetected) 05/24/23 18:00 M. pneumoniae (PCR) Not Detected (NotDetected) 05/24/23 18:00 Parainfluenza 1 (PCR) Not Detected (NotDetected) 05/24/23 18:00 Parainfluenza 2 (PCR) Not Detected (NotDetected) 05/24/23 18:00 Parainfluenza 3 (PCR) Not Detected (NotDetected) 05/24/23 18:00 Parainfluenza 4 (PCR) Not Detected (NotDetected) 05/24/23 18:00 RSV (PCR) Not Detected (NotDetected) 05/24/23 18:00 Entero/Rhino (PCR) Not Detected (NotDetected) 05/24/23 18:00 Impressions Chest X-Ray 05/24/23 18:01 XR chest 1V portable CLINICAL HISTORY: cough, not feeling well TECHNIQUE: Single frontal radiograph of the chest was obtained. Comparison: None available at the time of this dictation. FINDINGS: An implanted pacemaker is seen. The cardiomediastinal silhouette is normal. The lungs are clear. No evidence of pleural effusion or pneumothorax. IMPRESSION: No acute abnormalities and in particular no radiographic evidence of pneumonia. ACT 112: Negative or not required by law. Electronically signed by: Patrick Wright M.D. 05/24/2023 6:[address] 05/24/23 18:17 Exam(s): CT HEAD Without Contrast EXAM: CT Head Without Intravenous Contrast CLINICAL HISTORY: Reason for exam: ams. TECHNIQUE: Axial computed tomography images of the head/brain without intravenous contrast. CTDI is 50.58 mGy and DLP is 900.54 mGy-cm. Automated exposure control was utilized for the study. A dose lowering technique was utilized adhering to the principles of ALARA. COMPARISON: No relevant prior studies available. FINDINGS: No acute intracranial hemorrhage. No midline shift or mass effect. The territorial sapp-white matter differentiation is maintained throughout. Age-related cerebral volume loss. Periventricular and subcortical white matter hypoattenuation, consistent with chronic microangiopathy. The visualized orbits appear grossly unremarkable. The calvarium is intact. The visualized paranasal sinuses and mastoid air cells are grossly clear. IMPRESSION: No acute intracranial hemorrhage, midline shift, or mass effect. Electronically signed by: Pio Lehman MD 05/24/23 19:57 PM Abdomen/Pelvis CT 05/24/23 18:32 Exam(s): CT ABDOMEN + PELVIS With Contrast IV Amt: 117 ml opti 320 EXAM: CT Abdomen and Pelvis With Intravenous Contrast CLINICAL HISTORY: Reason for exam: llq pain. TECHNIQUE: Axial computed tomography images of the abdomen and pelvis with intravenous contrast. Automated exposure control was utilized for the study. A dose lowering technique was utilized adhering to the principles of ALARA. CONTRAST: Patient received 117 ml opti 320 of IV contrast COMPARISON: No relevant prior studies available. FINDINGS: Lung bases: Unremarkable. No mass. No consolidation. Heart: Cardiomegaly. ABDOMEN: Liver: Hepatic steatosis. Gallbladder and bile ducts: Cholelithiasis. No ductal dilation. Pancreas: Unremarkable. No mass. No ductal dilation. Spleen: Unremarkable. No splenomegaly. Adrenals: Unremarkable. No mass. Kidneys and ureters: No hydronephrosis or delayed nephrogram. Renal cysts. Stomach and bowel: Diverticulosis, without acute diverticulitis. No small bowel obstruction. No free intraperitoneal air. PELVIS: Appendix: No findings to suggest acute appendicitis. Bladder: Unremarkable. Normal urinary bladder. Reproductive: Hysterectomy. ABDOMEN and PELVIS: Intraperitoneal space: Unremarkable. No free air. No significant fluid collection. Bones/joints: Degenerative changes of the spine. Posterior fusion at L4-L5. No acute fracture. No dislocation. Soft tissues: Unremarkable. Vasculature: Atherosclerotic changes of the aorta. No abdominal aortic aneurysm. Lymph nodes: Unremarkable. No enlarged lymph nodes. Tubes, lines and devices: Pacemaker leads. IMPRESSION: 1. Hepatic steatosis. 2. Cholelithiasis. 3. Hysterectomy. 4. Diverticulosis, without acute diverticulitis. No small bowel obstruction. No free intraperitoneal air. Electronically signed by: Pio Lehman MD 05/24/23 21:29 PM Chest CTA 05/24/23 18:32 Exam(s): CTA CHEST IV Amt: 117 ml opti 320 EXAM: CT Angiography Chest With Intravenous Contrast CLINICAL HISTORY: Reason for exam: ro pe. TECHNIQUE: Axial computed tomographic angiography images of the chest with intravenous contrast. Automated exposure control was utilized for the study. A dose lowering technique was utilized adhering to the principles of ALARA. MIP reconstructed images were created and reviewed. COMPARISON: No relevant prior studies available. FINDINGS: Pulmonary arteries: Unremarkable. No acute pulmonary embolism. Aorta: No acute findings. No thoracic aortic aneurysm. Lungs: Dependent atelectasis. No pneumonia, pleural effusion, or pneumothorax. No mass. Pleural space: See above. Heart: Cardiomegaly. No significant pericardial effusion. No evidence of RV dysfunction. Bones/joints: No acute fracture. No dislocation. Soft tissues: Unremarkable. Lymph nodes: Unremarkable. No enlarged lymph nodes. Kidneys and ureters: RIGHT upper pole renal cyst measuring 3.7 cm. Tubes, lines and devices: Pacemaker leads. IMPRESSION: 1. Dependent atelectasis. No pneumonia, pleural effusion, or pneumothorax. 2. No acute pulmonary embolism. Electronically signed by: Pio Lehman MD 05/24/23 21:20 PM Code Status & VTE Plan Code Status Full code VTE Prophylaxis Plan VTE Prophylaxis will be ordered: Yes PG Care Time/CCT Total # of Minutes Spent Total Time Spent with Patient: Total time spent is greater than 50% in coordination of care (as documented) at patient's floor/unit and/or counseling patient: Coding Level of Care Code 14925 INT INP/OBS CARE 3/75MIN Diagnoses Urinary tract infection N39.0 Hypoxia R09.02 HTN (hypertension) I10 Presence of cardiac pacemaker Z95.0 Peripheral neuropathy G62.9 Dehydration E86.0
[2023-05-24] MEDS: cefTRIAXone SODIUM 2000MG/50ML D5W IV STA (23:07)
[2023-05-25] MEDS ORDERED: ONDANSETRON INJ 2 MG/ML 2 ML VIAL IV PRN (00:48)
[2023-05-25] MEDS: CHOLECALCIFEROL 125 MCG (5,000 UNITS) TAB PO SCH (08:04)
[2023-05-25] MEDS: amLODIPine BESYLATE 5 MG TAB PO SCH (08:04)
[2023-05-25] MEDS: GABAPENTIN 100 MG CAP PO SCH (08:05)
[2023-05-25] MEDS: LOSARTAN POTASSIUM 50 MG TAB PO SCH (08:05)
[2023-05-25] MEDS: METOPROLOL TARTRATE 25 MG TAB PO SCH (08:06)
[2023-05-25] MEDS: PROPRANOLOL HCL 60 MG LA CAP PO SCH (08:07)
[2023-05-25] MEDS: HEPARIN SOD 5,000 UNIT/0.5 ML VIAL SQ SCH (08:08)
[2023-05-25 08:19] LABS: Basophils # (auto) 0.06 K/uL (0.00-0.20); Basophils % (auto) 0.7 %; Eosinophils # (auto) 0.19 K/uL (0.00-0.50); Eosinophils % (auto) 2.1 %; Hematocrit (blood only) 41.9 % (37.0-47.0); Hemoglobin 13.9 g/dl (12.0-16.0); Immature Granulocytes # (auto) 0.04 K/uL (0.01-0.20); Immature Granulocytes % (auto) 0.5 %; Lymphocytes # (auto) 1.88 K/uL (1.20-3.40); Lymphocytes % (auto) 21.2 %; Mean Corpuscular Hemoglobin 28.8 pg (25.0-34.0); Mean Corpuscular Hgb Conc 33.2 g/dL (32.0-36.0); Mean Corpuscular Volume 86.7 fL (80.0-100.0); Mean Platelet Volume 9.5 fL (9.4-12.4); Monocytes # (auto) 0.84 K/uL (0.11-0.59); Monocytes % (auto) 9.5 %; Neutrophils # (auto) 5.85 K/uL (1.40-6.50); Platelet Count 304 K/uL (130-400); RDW Coefficient of Variation 12.6 % (11.5-14.5); RDW Standard Deviation 39.6 fL (36.4-46.3); Red Blood Count 4.83 M/uL (4.20-5.40); White Blood Count 8.86 K/ul (4.8-10.8)
[2023-05-25 08:32] LABS: Albumin Level 3.7 gm/dl (3.4-5.0); Calcium 9.7 mg/dl (8.6-10.3); Magnesium 1.9 mg/dl (1.7-2.4)
[2023-05-25 08:38] LABS: BUN Creatinine Ratio 16.5 (10-20); Creatinine Clr Calc Pharmacy 51.1 ml/min; Est GFR (African American) 77.5 ml/min; Est GFR (Non-African American) 66.8 ml/min; Phosphorus 2.4 mg/dl (2.5-4.9)
--- NOTE | 2023-05-25 10:18 | Electrocardiogram Report ---
Test Reason : Blood Pressure : / mmHG Vent. Rate : 060 BPM Atrial Rate : 060 BPM P-R Int : 274 ms QRS Dur : 084 ms QT Int : 400 ms P-R-T Axes : 035 -02 025 degrees QTc Int : 400 ms Atrial-paced rhythm with prolonged AV conduction Minimal voltage criteria for LVH, may be normal variant ( R in aVL ) Poor R wave progression, consider anterior CA vs. lead placement vs. LVH Abnormal ECG No previous ECGs available Confirmed by Pedrito Simon ([id number]) on 05/25/2023 10:18:09 AM Referred By: REFERRED SELF Confirmed By:Pedrito Simon
--- NOTE | 2023-05-25 19:10 | Hospitalist Progress Note ---
Date of Service May 25, 2023 Assessment & Plan (1) Urinary tract infection: Plan: dx with such at [facility] about 3-4 days ago by report will have [facility] Nurse Junior call Zalma to obtain urine cx result, if available if she did have UTI it is resolved -- u/a yesterday completely normal stop IV abx change to keflex for 3-4 more days then stop Rx (2) Hypoxia: Plan: resolved CTA chest neg for acute findings will obtain repeat cxr - r/o a developing pneumonia process or pulm edema but lungs clear on exam (3) HTN (hypertension): Plan: cont home meds (4) Presence of cardiac pacemaker: Plan: with reported weakness at home will obtain pacer interrogation - r/o dysrhythmia, etc (5) Peripheral neuropathy: Plan: cont gabapentin TID (6) Dehydration: Plan: resolved on exam stop IV fluids (7) Tremor: Plan: severe I'm assuming her inderal is for such does patient have developing PD? consider neuro consultation consider MRI brain Plan DVT proph - heparin 5000 BID I updated the pt's daughter extensively by phone this evening significant back history obtained from daughter plan to obtain MRI brain due to weakness, #7, etc check B12, CPK, CRP, and TSH in am for completeness PT, OT advising rehab - daughter made aware Admission and Anticipated Discharge Date Admission Date: May 24, 2023 Subjective saw patient in ER before she got her bed on the floor was resting in bed eating her lunch said "I want to go home, not sure why I am here" her only complaint was that of cough staff, however, states they have not heard her cough at all throughout the day I took her O2 off during the visit - o2 sats stayed 92% or above updated pt's daughter by phone this evening -- history from daughter -- chronic tremor, no neuro consult as outpatient; walks with shuffling gait; memory loss - gradual - over last year or two daughter reports her mother was more confused than baseline today staff mentioned she had hard time swallowing her chicken Review of Systems Review of Systems: gen - no fevers or chills cv - no chest pain pulm - no dyspnea musculo - chronic hip pain b/l and weakness w/ walking GI - no abd pain/nausea/emesis Physical Exam Physical Exam: gen - NAD, eating her lunch, severe pill-rolling tremors b/l arms mouth - MMM neck - no JVD heart - RRR, s1 s2 lungs - CTA b/l, no rales or wheeze abd - soft NT ND BS+ ext - no edema, pulses 2+ b/l musculo - restricted passive ROM of b/l hips (flexion) neuro - strength 5/5 upper and lower extremities, no facial droop Results & Data Results & Data Vital Signs (Past 12 Hours) Vital Signs Pulse Resp BP Pulse Ox O2 Flow Rate 05/25/23 10:40 60 16 97 3 05/25/23 10:30 60 18 93 05/25/23 10:20 60 18 97 05/25/23 10:10 60 21 95 05/25/23 10:00 60 22 95 05/25/23 10:00 150/76 H 05/25/23 09:50 60 21 96 05/25/23 09:40 60 18 96 05/25/23 09:30 60 13 97 05/25/23 09:20 60 21 96 05/25/23 09:10 60 24 96 05/25/23 09:00 60 18 96 05/25/23 09:00 153/75 H 05/25/23 08:50 60 22 96 05/25/23 08:40 60 19 96 05/25/23 08:30 60 19 96 05/25/23 08:20 60 24 95 05/25/23 08:10 60 21 94 05/25/23 08:03 60 21 95 05/25/23 08:03 147/85 H 05/25/23 08:00 60 17 94 05/25/23 07:50 62 18 94 05/25/23 07:40 60 17 96 05/25/23 07:30 60 16 95 05/25/23 07:20 60 15 94 05/25/23 07:14 60 05/25/23 07:10 60 18 94 Laboratory Results Laboratory Results - last 48 hr 05/24/23 05/24/23 05/24/23 18:00 18:36 18:42 WBC 9.48 RBC 5.03 Hgb 14.7 POC Hgb 14.6 Hct 43.6 POC Hct 43 MCV 86.7 MCH 29.2 MCHC 33.7 RDW Std Deviation 40.0 RDW Coeff of Von 12.8 Plt Count 345 MPV 9.7 Immature Gran % (Auto) 0.6 Neut % (Auto) 66.7 Lymph % (Auto) 21.7 Gooding % (Auto) 8.9 Eos % (Auto) 1.6 Baso % (Auto) 0.5 Neut # (Auto) 6.32 Lymph # (Auto) 2.06 Gooding # (Auto) 0.84 H Eos # (Auto) 0.15 Baso # (Auto) 0.05 Immature Gran # (Auto) 0.06 PT Cancelled INR Cancelled APTT Cancelled PTT Ratio Cancelled VBG pH 7.36 VBG pCO2 44 VBG pO2 76 VBG HCO3 25 VBG O2 Saturation 96.7 VBG Base Excess -0.8 POC Sodium 137 Sodium 136 POC Potassium 4.5 Potassium 4.7 POC Chloride 107 Chloride 104 Carbon Dioxide 27 POC Total CO2 25 Anion Gap 5 POC Anion Gap 10.0 L POC BUN 22 H BUN 20 Creatinine 1.02 POC Creatinine 1.1 Est Cr Clr Drug Dosing Not Reportable Est GFR ( Amer) 56.9 Est GFR (Non-Af Amer) 49.1 BUN/Creatinine Ratio 19.6 Glucose 108 H POC Glucose (other) 111 H Lactate 1.2 Calcium 10.8 H POC Ioniz Calcium Nataliya 1.21 Phosphorus Magnesium 2.2 Total Bilirubin 0.6 AST 22 ALT 16 Alkaline Phosphatase 52 Ammonia Total Creatine Kinase 42 Troponin I High Sens 5.7 C-Reactive Protein B-Natriuretic Peptide 114 H Total Protein 8.1 Albumin 4.3 Globulin 3.8 Albumin/Globulin Ratio 1.1 Vitamin B12 Procalcitonin 0.04 TSH Urine Color Urine Appearance Urine pH Ur Specific Arnold Urine Protein Urine Glucose (UA) Urine Ketones Urine Blood Urine Nitrite Urine Bilirubin Urine Urobilinogen Ur Leukocyte Esterase Adenovirus (PCR) Not Detected B. pertussis DNA (PCR) Not Detected B.parapertussis DNA PCR Not Detected C. pneumoniae DNA (PCR) Not Detected Coronavirus OC43 (PCR) Not Detected Coronavirus HKU1 (PCR) Not Detected Coronavirus 229E (PCR) Not Detected SARS-CoV-2 (PCR) Not Detected Coronavirus NL63 (PCR) Not Detected Human Metapneumovir PCR Not Detected Influenza Type A (PCR) Not Detected Influenza Type B (PCR) Not Detected M. pneumoniae (PCR) Not Detected Parainfluenza 1 (PCR) Not Detected Parainfluenza 2 (PCR) Not Detected Parainfluenza 3 (PCR) Not Detected Parainfluenza 4 (PCR) Not Detected RSV (PCR) Not Detected Entero/Rhino (PCR) Not Detected 05/24/23 05/24/23 05/24/23 20:20 20:27 21:28 WBC RBC Hgb POC Hgb Hct POC Hct MCV MCH MCHC RDW Std Deviation RDW Coeff of Von Plt Count MPV Immature Gran % (Auto) Neut % (Auto) Lymph % (Auto) Gooding % (Auto) Eos % (Auto) Baso % (Auto) Neut # (Auto) Lymph # (Auto) Gooding # (Auto) Eos # (Auto) Baso # (Auto) Immature Gran # (Auto) PT 10.9 INR 1.0 APTT 25 PTT Ratio 0.9 VBG pH VBG pCO2 VBG pO2 VBG HCO3 VBG O2 Saturation VBG Base Excess POC Sodium Sodium POC Potassium Potassium POC Chloride Chloride Carbon Dioxide POC Total CO2 Anion Gap POC Anion Gap POC BUN BUN Creatinine POC Creatinine Est Cr Clr Drug Dosing Est GFR ( Amer) Est GFR (Non-Af Amer) BUN/Creatinine Ratio Glucose POC Glucose (other) Lactate Calcium POC Ioniz Calcium Nataliya Phosphorus Magnesium Total Bilirubin AST ALT Alkaline Phosphatase Ammonia TNP 30.0 Total Creatine Kinase Troponin I High Sens C-Reactive Protein B-Natriuretic Peptide Total Protein Albumin Globulin Albumin/Globulin Ratio Vitamin B12 Procalcitonin TSH Urine Color Yellow Urine Appearance Clear Urine pH 5.5 Ur Specific Arnold 1.018 Urine Protein Negative Urine Glucose (UA) Negative Urine Ketones Negative Urine Blood Negative Urine Nitrite Negative Urine Bilirubin Negative Urine Urobilinogen Negative Ur Leukocyte Esterase Negative Adenovirus (PCR) B. pertussis DNA (PCR) B.parapertussis DNA PCR C. pneumoniae DNA (PCR) Coronavirus OC43 (PCR) Coronavirus HKU1 (PCR) Coronavirus 229E (PCR) SARS-CoV-2 (PCR) Coronavirus NL63 (PCR) Human Metapneumovir PCR Influenza Type A (PCR) Influenza Type B (PCR) M. pneumoniae (PCR) Parainfluenza 1 (PCR) Parainfluenza 2 (PCR) Parainfluenza 3 (PCR) Parainfluenza 4 (PCR) RSV (PCR) Entero/Rhino (PCR) 05/25/23 07:41 WBC 8.86 RBC 4.83 Hgb 13.9 POC Hgb Hct 41.9 POC Hct MCV 86.7 MCH 28.8 MCHC 33.2 RDW Std Deviation 39.6 RDW Coeff of Von 12.6 Plt Count 304 MPV 9.5 Immature Gran % (Auto) 0.5 Neut % (Auto) 66.0 Lymph % (Auto) 21.2 Gooding % (Auto) 9.5 Eos % (Auto) 2.1 Baso % (Auto) 0.7 Neut # (Auto) 5.85 Lymph # (Auto) 1.88 Gooding # (Auto) 0.84 H Eos # (Auto) 0.19 Baso # (Auto) 0.06 Immature Gran # (Auto) 0.04 PT INR APTT PTT Ratio VBG pH VBG pCO2 VBG pO2 VBG HCO3 VBG O2 Saturation VBG Base Excess POC Sodium Sodium 136 POC Potassium Potassium 4.0 POC Chloride Chloride 107 Carbon Dioxide 22 POC Total CO2 Anion Gap 7 POC Anion Gap POC BUN BUN 13 Creatinine 0.79 POC Creatinine Est Cr Clr Drug Dosing 51.1 Est GFR ( Amer) 77.5 Est GFR (Non-Af Amer) 66.8 BUN/Creatinine Ratio 16.5 Glucose 96 POC Glucose (other) Lactate Calcium 9.7 POC Ioniz Calcium Nataliya Phosphorus 2.4 L Magnesium 1.9 Total Bilirubin AST ALT Alkaline Phosphatase Ammonia Total Creatine Kinase Troponin I High Sens C-Reactive Protein B-Natriuretic Peptide Total Protein Albumin 3.7 Globulin Albumin/Globulin Ratio Vitamin B12 Procalcitonin TSH Urine Color Urine Appearance Urine pH Ur Specific Arnold Urine Protein Urine Glucose (UA) Urine Ketones Urine Blood Urine Nitrite Urine Bilirubin Urine Urobilinogen Ur Leukocyte Esterase Adenovirus (PCR) B. pertussis DNA (PCR) B.parapertussis DNA PCR C. pneumoniae DNA (PCR) Coronavirus OC43 (PCR) Coronavirus HKU1 (PCR) Coronavirus 229E (PCR) SARS-CoV-2 (PCR) Coronavirus NL63 (PCR) Human Metapneumovir PCR Influenza Type A (PCR) Influenza Type B (PCR) M. pneumoniae (PCR) Parainfluenza 1 (PCR) Parainfluenza 2 (PCR) Parainfluenza 3 (PCR) Parainfluenza 4 (PCR) RSV (PCR) Entero/Rhino (PCR) Diagnostic Findings blood cultures neg to date PG Care Time/CCT Total # of Minutes Spent Total Time Spent with Patient: Total time spent is greater than 50% in coordination of care (as documented) at patient's floor/unit and/or counseling patient: Coding Level of Care Code 51786 SUB INP/OBS CARE 3/50MIN Diagnoses Urinary tract infection N39.0 Hypoxia R09.02 HTN (hypertension) I10 Presence of cardiac pacemaker Z95.0 Peripheral neuropathy G62.9 Dehydration E86.0 Tremor R25.1
--- NOTE | 2023-05-25 19:59 | XRay Report ---
SINGLE VIEW CHEST CLINICAL HISTORY: Cough. Hypoxia FINDINGS: 2 AP, portable, upright chest radiographs are compared to study dated 05/24/2023. The examin ation is degraded by portable technique and patient rotation. A 2-lead cardiac pacemaker is unchange d in position. The heart is enlarged noting atherosclerotic calcification of the thoracic aorta. The pulmonary vasculature is noncongested. Chronic interstitial thickening is similar to previous. There is mild bibasilar atelectasis. Question trace pleural effusions. There is no airspace consolidation t ypical for pneumonia. No pneumothorax is seen. The skeletal structures are osteopenic. The bony thora x is grossly intact. IMPRESSION: 1. Cardiomegaly and cardiac pacemaker without radiographic evidence of congestive failure. 2. Question trace pleural effusions. ACT 112: Negative or not required by law. Electronically signed by: Robert Cervantes M.D. 05/25/2023 7:58 PM
[2023-05-25] MEDS: cephALEXin 500 MG CAP PO SCH (21:24)
[2023-05-25] MEDS ORDERED: cefTRIAXone SODIUM 2,000 MG in DEXTROSE 5 % MINI-B 50 ML IV SCH (22:00)
[2023-05-26 06:44] LABS: C Reactive Protein 1.12 mg/dl (0-0.5)
[2023-05-26 06:58] LABS: Thyroid Stimulating Hormone 4.426 uIu/ml (0.300-4.500)
[2023-05-26] MEDS: CYANOCOBALAMIN (B-12) 500 MCG TABLET PO SCH (09:52)
--- NOTE | 2023-05-27 05:54 | Hospitalist Progress Note ---
Date of Service May 26, 2023 Assessment & Plan (1) Urinary tract infection: Plan: dx with such at [facility] about 4 days ago by report records obtained - culture pending, but thus far negative and U/A at [facility] was not terribly suspicious for UTI if she did have UTI it is resolved -- u/a completely normal at time of ER presentation at [facility] stopped IV abx changed to keflex and complete course with such (2) Hypoxia: Plan: present in the ER shortly after presentation resolved CTA chest neg for acute findings repeat cxr w/o a developing pneumonia process or pulm edema sats remain normal in RA lung exam wnl (3) HTN (hypertension): Plan: cont home meds (4) Presence of cardiac pacemaker: Plan: with reported weakness at home will obtain pacer interrogation - r/o dysrhythmia, etc (5) Peripheral neuropathy: Plan: cont gabapentin TID (6) Dehydration: Plan: resolved Cr 1.2 at [facility] Cr 1 at [facility] presentation, improving to 0.79 thereafter (7) Tremor: Plan: severe I'm assuming her inderal is for such does patient have developing PD? consider neuro consultation unfortunately her pacemaker is MRI incompatible thus MRI brain canceled Plan DVT proph - heparin 5000 BID I updated the pt's daughter at bedside today PT, OT rehab post-discharge low-normal B12 level -- supplement CPK, CRP, TSH o/w wnl Admission and Anticipated Discharge Date Admission Date: May 24, 2023 Subjective tele - pacing no issues overnight pt resting comfortably in bed daughter at bedside pt reports fatigue and feeling tired but otherwise denies all other complaints eating fair-good daughter asked several questions about rehab we did get her records from [facility] u/a was borderline suggestive of UTI culture there is pending but thus far negative creatinine was 1.2 while at [facility] Review of Systems Review of Systems: gen - no fevers cv - no chest pain pulm - no dyspnea GI - no abd pain/nausea/emesis Physical Exam Physical Exam: gen - NAD, severe pill-rolling tremors b/l arms, flat affect, at times it takes her a while to answer questions mouth - MMM neck - no JVD heart - RRR, s1 s2 lungs - CTA b/l, no rales or wheeze abd - soft NT ND BS+ ext - no edema, pulses 2+ b/l Results & Data Results & Data Vital Signs (Past 12 Hours) Vital Signs Temp Pulse Pulse Pulse Resp BP Pulse Ox 05/26/23 15:25 37.2 C 62 15 154/77 H 88 L 05/26/23 11:30 36.7 C 60 18 152/82 H 93 05/26/23 08:00 36.8 C 60 16 169/77 H 93 O2 Del Method 05/26/23 15:25 Room Air 05/26/23 11:30 Room Air 05/26/23 08:00 Room Air Laboratory Results Laboratory Results - last 24 hr 05/26/23 05:54 Total Creatine Kinase 18 L C-Reactive Protein 1.12 H Vitamin B12 367 TSH 4.426 PG Care Time/CCT Total # of Minutes Spent Total Time Spent with Patient: Total time spent is greater than 50% in coordination of care (as documented) at patient's floor/unit and/or counseling patient: Coding Level of Care Code 88948 SUB INP/OBS CARE 04/22MIN Diagnoses Urinary tract infection N39.0 Hypoxia R09.02 HTN (hypertension) I10 Presence of cardiac pacemaker Z95.0 Peripheral neuropathy G62.9 Dehydration E86.0 Tremor R25.1
[2023-05-27 08:39] LABS: Anion Gap 7 (3-11); BUN Creatinine Ratio 22.7 (10-20); Blood Urea Nitrogen 22 mg/dl (6-23); Calcium 10.4 mg/dl (8.6-10.3); Carbon Dioxide 25 mmol/L (21-32); Chloride 103 mmol/L (98-107); Creatinine Clr Calc Pharmacy 40.3 ml/min; Est GFR (African American) 60.4 ml/min; Est GFR (Non-African American) 52.1 ml/min; Glucose 94 mg/dl (70-99(Fasting)); Sodium 135 mmol/L (136-145)
--- NOTE | 2023-05-27 10:16 | Neurology Consultation ---
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 She has associated gait dysfunction as well and is been using a rolling walker for about the same length of time. She also exhibits some mild cognitive impairment, mild difficulty with short-term memory, but improved performance with cueing. She is mildly bradykinetic, although not rigid. Her recent CT of the head was not suggestive of normal pressure hydrocephalus but does reveal age-related atrophy and chronic microvascular ischemic change. 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 Lewy body disease is possible although would be difficult to accurately diagnose at this time. Would need to monitor for emergence of fluctuating mental status, agitation, visual hallucinations. Does not seem to be an issue currently. Alzheimer's disease is not strongly suspected at this time. I would not recommend starting a cholinesterase inhibitor or memantine in the context of this hospitalization. Could potentially perform additional follow-up cognitive evaluation in the outpatient setting. I do not think propranolol is an optimal medication to address her tremor. Propranolol was apparently added recently by her PCP. Her examination is not highly suggestive of benign essential tremor. Further, she is also prescribed metoprolol and amlodipine. She does have a cardiac pacer. In any event, I would suggest discontinuation of the propranolol. Going forward, could consider a trial of carbidopa levodopa for her tremor as she does have some parkinsonian features on examination including a resting pill-rolling component to her tremor as well as some bradykinesia. However, I would rather not start this type of medication in the context of her acute hospitalization. Further, if she does have Lewy body disease, levodopa would have the potential to negatively affect her mental status. Furthermore, I am uncertain if adding carbidopa levodopa would greatly improve her overall functioning versus the possibility of side effects. Patient may follow-up with me or one of my CHRISTINE's in neurology clinic in 2 to 3 weeks. Please call with any questions. History of Present Illness Reason for Consultation: tremor, memory loss Requesting Physician: Pérez Attending Physician: Mason Ortez MD History of Present Illness The patient is an 87-year-old female with a chief complaint of tremor, memory loss, gait dysfunction. She indicates that her tremor began about 1 year ago, perhaps initially affecting the right hand although both hands are involved. Her tremor appears to have a resting, postural, action and intention component. She is a bit bradykinetic, no rigidity. She has been using a rolling walker for about the past year as well. She is aware of some mild difficulty with memory, perhaps slightly progressive. She has been living independently, although has been slowly declining. She denies any significant issue with mood or sleep, no hallucinations. [facility] issues including urinary tract infection, resolved hypoxia, possible pneumonia or pulmonary edema on CTA of the chest, resolved dehydration. She has a cardiac pacer. She also has a diagnosis of peripheral neuropathy for which she is prescribed gabapentin. She denies experiencing significant distal lower extremity pain, numbness, or weakness. Her processing speed seems somewhat slow. However, she does seem to be a reliable historian. A CT of the head comp leted on May 24 was negative for hemorrhage or acute process. There is generalized atrophy and chronic microvascular ischemic disease. I did independently review these images. Imaging not suggestive of normal pressure hydrocephalus. There is an element of bilateral hippocampal atrophy. Allergies Allergy/AdvReac Type Severity Reaction Status Date / Time acetaminophen [From Tylenol] Allergy Unknown Please see Unverified 05/24/23 20:14 comment. Home Medications Medication Instructions Recorded Confirmed Type amlodipine 5 mg tablet 5 mg PO DAILY 05/24/23 05/24/23 History cephalexin 500 mg capsule 500 mg PO BID 05/24/23 05/24/23 History cholecalciferol (vitamin D3) 125 5,000 unit PO DAILY 05/24/23 05/24/23 History mcg (5,000 unit) tablet gabapentin 100 mg capsule 100 mg PO TID 05/24/23 05/24/23 History losartan 100 mg tablet 100 mg PO DAILY 05/24/23 05/24/23 History metoprolol tartrate 25 mg tablet 25 mg PO BID 05/24/23 05/24/23 History propranolol 60 mg capsule,24 60 mg PO DAILY 05/24/23 05/24/23 History hr,extended release Patient History Medical History (Updated 05/27/23 @ 10:05 by Elpidio Haney MD) Peripheral neuropathy Presence of cardiac pacemaker Urinary tract infection No pertinent family history HTN (hypertension) Surgical History No pertinent past surgical history Social History Smoking Status: Never smoker Communication Ability: Effective Temporary Administrative Assistant Required: No Beliefs That Will Affect Care: None Current Living Situation: Alone Current Living Situation Comment: In an Apartment alone Feels Safe at Home: Yes Assistive Devices: Glasses and Walker Review of Systems Constitutional: no fever and no chills Eyes: no blind spots and no diplopia Ear, Nose, Mouth, Throat: no hearing loss Respiratory: no cough and no dyspnea Cardiovascular: no chest pain and no palpitations Gastrointestinal: no nausea and no vomiting Genitourinary: no urinary incontinence Musculoskeletal: no myalgia and no muscle atrophy Integumentary: no rash and no lesions Neurologic: as per Subjective / HPI, + gait abnormality, + tremor(s) and + memory loss Psychiatric: no depression, no anxiety and no hallucinations Hematologic / Lymphatic: no easy bleeding and no easy bruising Exam (Neuro) Constitutional: well developed and well nourished; no acute distress Eyes: normal visual mckenna by confrontation, PERRL and EOM intact bilaterally; no nystagmus Neurologic: Oriented to:: Person, Place and Time Memory: Remote Intact; negative Short Term Intact Attention: Span Intact and Concentration Intact Speech Fluency: negative Dysarthria or Dysfluency Speech Aphasia: negative Aphasia Fund of Knowledge: Current Events, Past History and Vocabulary Cranial Nerves: Normal II, III, IV, , V, VII, VIII, IX, X, XI and XII Motor Strength: Normal Lower Extremities and Normal Upper Extremities Motor Tone: Normal Lower Extremities and Normal Upper Extremities Rigidity: None Muscle Bulk/Involuntary Movements: Intention Tremor, Rest Tremor (Arm) and Action Tremor Sensation: Light Touch Intact, Pain/Temperature Intact and Proprioception Intact Coordination: negative Dysdiadochokinesia, Finger-Nose Abnormal or Heel-Santiago Abnormal Deep Tendon Reflexes: Rt Triceps: 2+, Lt Triceps: 2+, Rt Biceps: 2+, Lt Biceps: 2+, Rt Brachioradialis: 2+, Lt Brachioradialis: 2+, Rt Patellar: 2+, Lt Patellar: 2+, Rt Ankle: 1+ and Lt Ankle: 1+ Special Tests: negative Babinski Present Details: Patient did exhibit some difficulty with delayed recall, 1 out of 3 objects although did get 3 out of 3 with cueing. She was oriented to month, day of the week, was able to indicate the correct date when told today is . She was oriented to the town and was able to correctly guess the name of the [facility] and county with cueing. Patient exhibited an intermittent perioral tremor. Results & Data Vital Signs (Past 12 Hours) Vital Signs Temp Pulse Pulse Resp BP Pulse Ox O2 Del Method 05/27/23 08:34 36.6 C 60 19 159/78 H 93 Room Air 05/27/23 08:12 60 05/27/23 03:52 36.6 C 60 18 155/72 H 90 Room Air 05/27/23 01:58 60 05/26/23 23:11 36.7 C 92 H 18 133/66 92 Room Air Laboratory Results WBC 8.86, hemoglobin 13.9, hematocrit 41.9, MCV 86.7, platelet count 304, sodium 135, potassium 4.4, BUN 22, creatinine 0.97, glucose 94, calcium 10.4, magnesium 1.9, vitamin B12 367, TSH 4.[address] of the head is as described in the HPI, I independently reviewed these images. Electrocardiogram revealed an atrial paced rhythm with prolonged AV conduction, 60 bpm. Coding Level of Care Code 71231 INT INP/OBS CARE 3/75MIN Diagnoses Mixed action and resting tremor R25.9 Parkinsonism G20.C Memory loss R41.3 Time Spent (min) 80 Comment Total time includes patient contact, chart review, counseling, note preparation
--- NOTE | 2023-05-27 20:11 | Hospitalist Progress Note ---
Date of Service May 27, 2023 Assessment & Plan (1) Urinary tract infection: Plan: dx with such at [facility] about 4-5 days ago by report records obtained - culture pending, but thus far negative and U/A at [place] was not terribly suspicious for UTI if she did have UTI it is resolved -- u/a completely normal at time of ER presentation at [facility] stopped IV abx changed to keflex and complete course with such to be on safe side (2) Hypoxia: Plan: present in the ER shortly after presentation resolved CTA chest neg for acute findings repeat cxr w/o a developing pneumonia process or pulm edema sats remain normal in RA lung exam wnl (3) HTN (hypertension): Plan: cont home meds control acceptable (4) Presence of cardiac pacemaker: Plan: with reported weakness at home will obtain pacer interrogation - r/o dysrhythmia, etc multiple attempts to interrogate the device today w/o success follows with a Dr Carey in [place] -- will call his office tomorrow to get last interrogation report (5) Peripheral neuropathy: Plan: cont gabapentin TID (6) Dehydration: Plan: resolved Cr 1.2 at [facility] Cr 1 at [facility] presentation, improving to <1 thereafter (7) Tremor: Plan: severe I'm assuming her inderal is for such appreciate Dr Haney's consult from neurology he recommends to stop the inderal he feels she does indeed have parkinsonism but advises against initiating medicine while hospitalized suggests she f/u with [facility] a few weeks post-discharge unfortunately her pacemaker is MRI incompatible thus MRI brain canceled (8) Memory loss: Plan: 1-2 years Lewy-Body dementia? vascular dementia? other? appreciate neuro eval check B1 level - place on empiric thiamine while awaiting level B12 level 367 -- low-normal -- supplement TSH 4.4 (9) Parkinsonism: Plan: as dx by neurology - Dr Haney [facility] f/u post-discharge recommended by Dr Haney (10) Hypercalcemia: Plan: mild primary hyperparathyroidism? check intact PTH in am recent phos mildly low which may be c/w hyperparathyroidism check 25-OH vit D level repeat BMP am Plan DVT proph - heparin 5000 BID I updated the pt's daughter at bedside today once again PT, OT rehab post-discharge - [facility]? could potentially be ready for d/c tomorrow Admission and Anticipated Discharge Date Admission Date: May 24, 2023 Subjective no events overnight medically staff tried to interrogate her pacemaker w/o success [employer] device rep also tried to interrogate the device w/o success will try to call her medical assistant supervisor in [place] tomorrow to get latest download daughter at bedside we discussed the neurology consult done today (suspected parkinsonism) tele overnight - pacing + stool today eating fair Review of Systems Review of Systems: cv - no cp pulm - no cough or dyspnea GI - no abd pain or nausea gen - "I feel ok" Physical Exam Physical Exam: gen - NAD, severe pill-rolling tremors b/l arms, flat affect mouth - MMM neck - no JVD heart - RRR, s1 s2, no murmur lungs - CTA b/l, no rales or wheeze abd - soft NT ND BS+ ext - no edema, pulses 2+ b/l neuro - baseline tremors, masked facies Results & Data Results & Data Vital Signs (Past 12 Hours) Vital Signs Temp Pulse Pulse Resp BP Pulse Ox O2 Del Method 05/27/23 17:59 37.4 C 60 16 153/72 H 92 Room Air 05/27/23 15:20 60 05/27/23 11:43 37.0 C 60 18 154/78 H 92 Room Air 05/27/23 08:34 36.6 C 60 19 159/78 H 93 Room Air 05/27/23 08:12 60 Laboratory Results Laboratory Results - last 24 hr 05/27/23 05/27/23 07:19 08:41 Sodium 135 L Potassium TNP 4.4 Chloride 103 Carbon Dioxide 25 Anion Gap 7 BUN 22 Creatinine 0.97 Est Cr Clr Drug Dosing 40.3 Est GFR ( Amer) 60.4 Est GFR (Non-Af Amer) 52.1 BUN/Creatinine Ratio 22.7 H Glucose 94 Calcium 10.4 H Vitamin B1 Pending PG Care Time/CCT Total # of Minutes Spent Total Time Spent with Patient: Total time spent is greater than 50% in coordination of care (as documented) at patient's floor/unit and/or counseling patient: Coding Level of Care Code 09542 SUB INP/OBS CARE 2/35MIN Diagnoses Urinary tract infection N39.0 Hypoxia R09.02 HTN (hypertension) I10 Presence of cardiac pacemaker Z95.0 Peripheral neuropathy G62.9 Dehydration E86.0 Tremor R25.1 Memory loss R41.3 Parkinsonism G20.C Hypercalcemia E83.52
[2023-05-27] MEDS: THIAMINE HCL 100 MG TAB PO SCH (20:44)
[2023-05-28 07:05] LABS: Calcium 10.3 mg/dl (8.6-10.3); Potassium 4.7 mmol/L (3.5-5.1)
[2023-05-28 07:11] LABS: BUN Creatinine Ratio 26.5 (10-20); Creatinine Clr Calc Pharmacy 40.1 ml/min; Est GFR (African American) 59.7 ml/min; Est GFR (Non-African American) 51.5 ml/min
--- NOTE | 2023-05-28 20:19 | Hospitalist Progress Note ---
Date of Service May 28, 2023 Assessment & Plan (1) Urinary tract infection: Plan: dx with such at [facility] about 4-5 days ago by report final culture with no growth U/A at [place] was not terribly suspicious for UTI if she did have UTI it is resolved -- u/a completely normal at time of ER presentation at [facility] stopped IV abx changed to keflex stop abx after tomorrow AM's dose (2) Hypoxia: Plan: present in the ER shortly after presentation resolved CTA chest neg for acute findings repeat cxr w/o a developing pneumonia process or pulm edema sats remain normal in RA lung exam wnl (3) HTN (hypertension): Plan: cont home meds control acceptable (4) Presence of cardiac pacemaker: Plan: with reported weakness at home will obtain pacer interrogation - r/o dysrhythmia, etc multiple attempts to interrogate the device w/o success follows with a Dr Carey in [place] -- our nurse daphne called his office today - last interrogation was 02/2023 office to fax the report to us (5) Peripheral neuropathy: Plan: cont gabapentin TID (6) Dehydration: Plan: resolved Cr 1.2 at [facility] Cr 1 at [facility] presentation, improving to <1 thereafter (7) Tremor: Plan: severe appreciate Dr Haney's consult from neurology he recommends to stop the inderal he feels she does indeed have parkinsonism but advises against initiating medicine while hospitalized suggests she f/u with [facility] a few weeks post-discharge unfortunately her pacemaker is MRI incompatible thus MRI brain canceled (8) Memory loss: Plan: 1-2 years Lewy-Body dementia? vascular dementia? other? appreciate neuro eval check B1 level - placed on empiric thiamine while awaiting level B12 level 367 -- low-normal -- supplement TSH 4.4 (9) Parkinsonism: Plan: as dx by neurology - Dr Haney [facility] f/u post-discharge recommended by Dr Haney (10) Hypercalcemia: Plan: very mild intact PTH wnl 25-OH vit D level robust - will hold in the setting of the mildly high Ca repeat BMP am Plan DVT proph - heparin 5000 BID I updated the pt's daughter at bedside today once again PT, OT rehab post-discharge - [facility] hopefully d/c this weekend when bed is available Admission and Anticipated Discharge Date Admission Date: May 24, 2023 Subjective no events overnight pacing 100% of the time on tele eating well drinking well daughter at bedside - she is aware we are waiting on bed at [facility] +stool on Review of Systems Review of Systems: gen - "I feel good" cv - no cp pulm - no cough, no congestion, no dyspnea GI - no abd pain, no N/V Physical Exam Physical Exam: gen - NAD, flat affect, laying in bed comfortably mouth - MMM neck - no JVD heart - RRR, s1 s2, no murmur lungs - CTA b/l, no rales or wheeze abd - soft NT ND BS+ ext - no edema, pulses 2+ b/l neuro - baseline tremors, masked facies - unchanged Results & Data Results & Data Vital Signs (Past 12 Hours) Vital Signs Temp Pulse Pulse Resp BP Pulse Ox O2 Del Method 05/28/23 15:43 60 05/28/23 15:30 37.1 C 75 14 137/67 90 Room Air 05/28/23 11:05 37.3 C 92 H 14 139/72 92 Room Air Laboratory Results Laboratory Results - last 24 hr 05/27/23 05/28/23 05/28/23 08:47 05:46 06:13 Sodium 134 L Potassium 4.7 Chloride 105 Carbon Dioxide 22 Anion Gap 7 BUN 26 H Creatinine 0.98 Est Cr Clr Drug Dosing 40.1 Est GFR ( Amer) 59.7 Est GFR (Non-Af Amer) 51.5 BUN/Creatinine Ratio 26.5 H Glucose 97 Calcium 10.3 25-OH Vitamin D Total 57.4 PTH Intact 57.9 Diagnostic Findings urine cx from [facility] was NEGATIVE / no growth (final) PG Care Time/CCT Total # of Minutes Spent Total Time Spent with Patient: Total time spent is greater than 50% in coordination of care (as documented) at patient's floor/unit and/or counseling patient: Coding Level of Care Code 53976 SUB INP/OBS CARE 2/35MIN Diagnoses Urinary tract infection N39.0 Hypoxia R09.02 HTN (hypertension) I10 Presence of cardiac pacemaker Z95.0 Peripheral neuropathy G62.9 Dehydration E86.0 Tremor R25.1 Memory loss R41.3 Parkinsonism G20.C Hypercalcemia E83.52
--- NOTE | 2023-05-29 16:04 | XRay Report ---
XR chest 2V PA/lateral HISTORY: 87 years-old Female fever, LLL rales; pneumonia? Acute fever shortness of breath COMPARISON: 05/25/2023 TECHNIQUE: AP and lateral views of the chest FINDINGS: Cardiac silhouette is enlarged. Dual lead left subclavian pacer. The patient is mildly rotated. No pn eumothorax, pleural effusion or airspace consolidation. Bones of the chest appear grossly intact. Lef t axillary surgical clips. Degenerative changes of the shoulders and spine. IMPRESSION: Cardiomegaly without acute process. ACT 112: Negative or not required by law. The above report was generated using voice recognition software. It may contain grammatical, syntax o r spelling errors. Electronically signed by: Simba Abbott M.D. 05/29/2023 4:03 PM
[2023-05-29 16:40] LABS: Influenza A virus by PCR Negative (Neg); Influenza B virus by PCR Negative (Neg); RSV by PCR Negative (Neg); SARS CoV2 RNA(COVID-19) Ceph NEGATIVE (Negative)
--- NOTE | 2023-05-29 19:38 | Hospitalist Progress Note ---
Date of Service May 29, 2023 Assessment & Plan (1) Fever: Plan: source uncertain CT chest/abd/pelvis at admission neg for infectious etiology due to gallstones on CT will obtain gall bladder u/s - r/o a brewing cholecystitis covid/flu/rsv neg u/a at admission neg blood cx's at admission neg biofire at admission neg await GB u/s and, if negative, will need additional w/u to locate the source (2) Urinary tract infection: Plan: dx with such at [facility] about 4-5 days ago by report final culture at [place] with no growth U/A at [place] was not terribly suspicious for UTI if she did have UTI it had resolved by time of admission to [facility] -- u/a completely normal at time of ER presentation she finished her course of PO keflex today now with new fever - see #1 above (3) Hypoxia: Plan: present in the ER shortly after presentation resolved CTA chest neg for acute findings multiple cxr's since admission negative sats remain normal in RA (4) HTN (hypertension): Plan: cont home meds control acceptable (5) Presence of cardiac pacemaker: Plan: with reported weakness at home will obtain pacer interrogation - r/o dysrhythmia, etc multiple attempts to interrogate the device w/o success follows with a Dr Carey in [place] -- last interrogation was 02/2023; records obtained and the interrogation then was NORMAL (6) Peripheral neuropathy: Plan: cont gabapentin TID (7) Dehydration: Plan: resolved Cr 1.2 at [facility] Cr 1 at [facility] presentation, improving to <1 thereafter (8) Tremor: Plan: severe appreciate Dr Haney's consult from neurology he recommends to stop the inderal he feels she does indeed have parkinsonism but advises against initiating medicine while hospitalized suggests she f/u with [facility] a few weeks post-discharge (9) Memory loss: Plan: 1-2 years Lewy-Body dementia? vascular dementia? other? appreciate neuro eval check B1 level - placed on empiric thiamine while awaiting level B12 level 367 -- low-normal -- supplement TSH 4.4 (10) Parkinsonism: Plan: as dx by neurology - Dr Haney [facility] f/u post-discharge recommended by Dr Haney (11) Hypercalcemia: Plan: very mild intact PTH wnl 25-OH vit D level robust - will hold in the setting of the mildly high Ca repeat BMP with normal calcium today trend/monitor Plan DVT proph - heparin 5000 BID I updated the pt's daughter by phone this evening re: fever and w/u for such PT, OT rehab post-discharge - [facility] Admission and Anticipated Discharge Date Admission Date: May 24, 2023 Subjective pacing on tele low-grade temp 37.8 overnight she was sleepy during the visit unable to provide any meaningful history or ROS other than "I'm tired" would just stare at me most of the time nursing flowsheets show 25-50% of meals consumed - large drop-off from yesterday Review of Systems Review of Systems: Unobtainable due to cognitive status Physical Exam Physical Exam: gen - NAD, flat affect, laying in bed comfortably, confused mouth - MMM neck - no JVD heart - RRR, s1 s2, no murmur lungs - subtle LLL rales but no wheeze abd - soft NT ND BS+ ext - no edema, pulses 2+ b/l neuro - baseline tremors, masked facies - unchanged skin - contact derm rash on back Results & Data Results & Data Vital Signs (Past 12 Hours) Vital Signs Temp Pulse Pulse Resp BP Pulse Ox O2 Del Method 05/29/23 19:00 38.1 C H 73 16 137/69 99 Room Air 05/29/23 15:21 64 05/29/23 14:55 37.4 C 61 18 152/77 H 94 Room Air 05/29/23 11:39 36.8 C 61 18 107/79 92 Room Air 05/29/23 09:08 Room Air 05/29/23 07:52 37.1 C 58 L 18 166/79 H 90 Room Air Laboratory Results Laboratory Results - last 24 hr 05/29/23 Unknown SARS-CoV-2 (PCR) NEGATIVE Influenza Type A (PCR) Negative Influenza Type B (PCR) Negative RSV (RT-PCR) Negative Diagnostic Findings Chest X-Ray 05/29/23 15:21 XR chest 2V PA/lateral HISTORY: 87 years-old Female fever, LLL rales; pneumonia? Acute fever shortness of breath COMPARISON: 05/25/2023 TECHNIQUE: AP and lateral views of the chest FINDINGS: Cardiac silhouette is enlarged. Dual lead left subclavian pacer. The patient is mildly rotated. No pneumothorax, pleural effusion or airspace consolidation. Bones of the chest appear grossly intact. Left axillary surgical clips. Degenerative changes of the shoulders and spine. IMPRESSION: Cardiomegaly without acute process. ACT 112: Negative or not required by law. The above report was generated using voice recognition software. It may contain grammatical, syntax or spelling errors. Electronically signed by: Simba Abbott M.D. 05/29/2023 4:03 PM PG Care Time/CCT Total # of Minutes Spent Total Time Spent with Patient: Total time spent is greater than 50% in coordination of care (as documented) at patient's floor/unit and/or counseling patient: Coding Level of Care Code 20023 SUB INP/OBS CARE 3/50MIN Diagnoses Fever R50.9 Urinary tract infection N39.0 Hypoxia R09.02 HTN (hypertension) I10 Presence of cardiac pacemaker Z95.0 Peripheral neuropathy G62.9 Dehydration E86.0 Tremor R25.1 Memory loss R41.3 Parkinsonism G20.C Hypercalcemia E83.52
[2023-05-29] MEDS: NYSTATIN CR 15 GM TUBE EXT SCH (21:29)
[2023-05-29] MEDS: TRIAMCINOLONE ACET 0.1% CR 80 GM TUBE EXT SCH (21:29)
--- NOTE | 2023-05-29 21:43 | Ultrasound Report ---
Exam(s): US GALLBLADDER EXAM: US Abdomen Limited, Right Upper Quadrant CLINICAL HISTORY: Reason for exam: gallstones, fever, confusion; assess cholecystitis. TECHNIQUE: Real-time ultrasound of the right upper quadrant with image documentation. COMPARISON: CT 05/24/2023 FINDINGS: Liver: Liver measures 18.1 cm. Increased echogenicity. Gallbladder: Stone in the gallbladder measuring 1.3 cm. No wall thickening. Negative Severino's. No pericholecystic fluid. Common bile duct: The common bile duct measures 3 mm. Pancreas: Unremarkable as visualized. Right kidney: No hydronephrosis in the right kidney. Upper pole simple cyst measuring 3.6 x 3.5 x 3.4 cm. IMPRESSION: 1. Cholelithiasis without evidence of acute cholecystitis. 2. Hepatic steatosis and mild hepatomegaly. Electronically signed by: Ventura Deutsch MD 05/29/23 21:42 PM
--- NOTE | 2023-05-30 04:17 | Communication Note ---
Alerted by nursing that pt was febrile to 38.1 at 1900. Per sign out from Dr. Mayorga she was febrile overnight on 05/27 and infection work-up in process, repeat blood cultures ordered per his sign out. US of gallbladder reviewed and showed Cholelithiasis without evidence of acute cholecystitis. Date of Service: May 30, 2023
[2023-05-30 11:18] LABS: Basophils # (auto) 0.06 K/uL (0.00-0.20); Basophils % (auto) 0.7 %; Eosinophils # (auto) 0.37 K/uL (0.00-0.50); Hematocrit (blood only) 41.9 % (37.0-47.0); Immature Granulocytes # (auto) 0.08 K/uL (0.01-0.20); Immature Granulocytes % (auto) 0.9 %; Lymphocytes # (auto) 1.68 K/uL (1.20-3.40); Lymphocytes % (auto) 18.3 %; Mean Corpuscular Hemoglobin 28.9 pg (25.0-34.0); Mean Corpuscular Hgb Conc 33.4 g/dL (32.0-36.0); Mean Corpuscular Volume 86.4 fL (80.0-100.0); Mean Platelet Volume 9.6 fL (9.4-12.4); Monocytes # (auto) 0.93 K/uL (0.11-0.59); Monocytes % (auto) 10.1 %; Neutrophils # (auto) 6.08 K/uL (1.40-6.50); Platelet Count 295 K/uL (130-400); RDW Coefficient of Variation 12.7 % (11.5-14.5); RDW Standard Deviation 39.6 fL (36.4-46.3); Red Blood Count 4.85 M/uL (4.20-5.40)
[2023-05-30 11:35] LABS: Albumin Globulin Ratio 1.1 (0.9-2); Albumin Level 3.5 gm/dl (3.4-5.0); BUN Creatinine Ratio 23.9 (10-20); Bilirubin,Total 0.8 mg/dl (0.2-1.0); Calcium 10.4 mg/dl (8.6-10.3); Creatinine Clr Calc Pharmacy 43.3 ml/min; Est GFR (African American) 64.4 ml/min; Est GFR (Non-African American) 55.6 ml/min; Globulin 3.3 gm/dl (2.5-4.0); Potassium 4.2 mmol/L (3.5-5.1); Total Protein 6.8 gm/dl (6.0-8.3)
[2023-05-30] MEDS: SODIUM CHLORIDE 0.9% 1,000 ML IV SCH (14:34)
[2023-05-30 16:32] LABS: Appearance Urine Cloudy (Clear); Bacteria Urine Automated Negative (Negative); Bilirubin Urine Negative (Negative); Blood Urine Trace (Negative); Color Urine Yellow; Epithelial Cell Urine Auto >30 /lpf (0-5); Glucose Urine UA Negative (Negative); Ketones Urine Negative (Negative); Leukocyte Esterase Urine Trace (Negative); Nitrite Urine Negative (Negative); Protein Urine Negative (Negative); Urobilinogen Urine Negative (Negative); pH Urine 5.5 (4.5-7.5)
[2023-05-30 16:42] LABS: Calcium Oxalate Crystals Urine Present (None Prsent); RBC Urine Automated 0-4 /hpf (0-4)
--- NOTE | 2023-05-30 19:57 | Hospitalist Progress Note ---
Date of Service May 30, 2023 Assessment & Plan (1) Fever: Plan: source uncertain CT chest/abd/pelvis at admission neg for infectious etiology due to gallstones on CT checked gall bladder u/s - gallstones present, but no signs to suggest cholecystitis repeat covid/flu/rsv neg u/a at admission neg blood cx's at admission neg biofire at admission neg ua today not terribly suspicous for UTI, and she just finished a 7-day course of abx for presumed UTI (although, again, urine cx at outside hospital was negative) repeat blood cx's were obtained today and are pending etiology? viral? non-infectious? other? if fevers persist - consider EBV/CMV/parvo titers, tick-borne w/u, crp, sed rate, dopplers of legs, etc also consider ID consult (2) Urinary tract infection: Plan: dx with such at [facility] about 4-5 days ago by report final culture at [place] with no growth U/A at [place] was not terribly suspicious for UTI if she did have UTI it had resolved by time of admission to [facility] -- u/a completely normal at time of ER presentation she finished her course of PO keflex yesterday despite the negative urine cx at [place] u/a today not terribly suspicious for ongoing UTI (and urinary tract was normal on CT at time of this admission) now with new fever - see #1 above (3) Hypoxia: Plan: present in the ER shortly after presentation resolved CTA chest neg for acute findings multiple cxr's since admission negative sats remain normal in RA (4) HTN (hypertension): Plan: cont home meds control acceptable (5) Presence of cardiac pacemaker: Plan: with reported weakness at home will obtain pacer interrogation - r/o dysrhythmia, etc multiple attempts to interrogate the device w/o success follows with a Dr Carey in [place] -- last interrogation was 02/2023; records obtained and the interrogation then was NORMAL (6) Peripheral neuropathy: Plan: cont gabapentin TID (7) Dehydration: Plan: resolved, but then yesterday had poor po intake fluids given overnight and today; can likely stop these in the am tomorrow Cr 1.2 at [facility] Cr 1 at [facility] presentation, improving to <1 thereafter (8) Tremor: Plan: severe appreciate Dr Haney's consult from neurology he recommends to stop the inderal he feels she does indeed have parkinsonism but advises against initiating medicine while hospitalized suggests she f/u with [facility] a few weeks post-discharge (9) Memory loss: Plan: 1-2 years Lewy-Body dementia? vascular dementia? other? appreciate neuro eval check B1 level - placed on empiric thiamine while awaiting level B12 level 367 -- low-normal -- supplement TSH 4.4 (10) Parkinsonism: Plan: as dx by neurology - Dr Haney [facility] f/u post-discharge recommended by Dr Haney (11) Hypercalcemia: Plan: very mild intact PTH wnl 25-OH vit D level robust - will hold in the setting of the mildly high Ca repeat BMP still with mildly elevated calcium placed back on IV fluids repeat calcium level am she was not on meds at home that would cause high calcium trend/monitor Plan DVT proph - heparin 5000 BID I updated the pt's daughter by phone this evening re: fever work-up and results questions answered PT, OT rehab post-discharge - [facility] Admission and Anticipated Discharge Date Admission Date: May 24, 2023 Subjective had temps overnight but none since early AM during rounds (late am) she said "I feel much better today" she then said "well, I don't have a fever any more" she is eating better today she was MUCH more talkative today tele - pacing denies headache, congestion, sore throat, ear pain, dyspnea, cough, chest pain, abd pain, nausea, emesis, dysuria, any worsening of baseline hip pain, myalgias, itchy rashes Review of Systems Review of Systems: see my HPI Physical Exam Physical Exam: gen - NAD, flat affect, laying in bed comfortably, looks much better today, more interactive mouth - MMM neck - no JVD heart - RRR, s1 s2, no murmur lungs - CTA b/l today, no wheeze or rales abd - soft NT ND BS+ ext - no edema, pulses 2+ b/l neuro - baseline tremors, masked facies - unchanged skin - contact derm rash on back is improved; no other areas of rash on arms, palms, soles, legs, face musculo - no synovitis of any joint of upper or lower ext neuro - strength 5/5 x b/l upper & lower exts Results & Data Results & Data Vital Signs (Past 12 Hours) Vital Signs Temp Pulse Resp BP Pulse Ox O2 Del Method 05/30/23 19:48 36.8 C 60 18 156/82 H 95 Room Air 05/30/23 14:45 36.7 C 61 18 135/67 91 Room Air 05/30/23 11:14 36.9 C 60 18 150/72 H 91 Room Air Laboratory Results Laboratory Results - last 24 hr 05/30/23 05/30/23 10:43 Unknown WBC 9.20 RBC 4.85 Hgb 14.0 Hct 41.9 MCV 86.4 MCH 28.9 MCHC 33.4 RDW Std Deviation 39.6 RDW Coeff of Von 12.7 Plt Count 295 MPV 9.6 Immature Gran % (Auto) 0.9 Neut % (Auto) 66.0 Lymph % (Auto) 18.3 Travis % (Auto) 10.1 Eos % (Auto) 4.0 Baso % (Auto) 0.7 Neut # (Auto) 6.08 Lymph # (Auto) 1.68 Travis # (Auto) 0.93 H Eos # (Auto) 0.37 Baso # (Auto) 0.06 Immature Gran # (Auto) 0.08 Sodium 132 L Potassium 4.2 Chloride 101 Carbon Dioxide 25 Anion Gap 6 BUN 22 Creatinine 0.92 Est Cr Clr Drug Dosing 43.3 Est GFR ( Amer) 64.4 Est GFR (Non-Af Amer) 55.6 BUN/Creatinine Ratio 23.9 H Glucose 104 H Calcium 10.4 H Total Bilirubin 0.8 AST 13 ALT 12 Alkaline Phosphatase 43 Total Protein 6.8 Albumin 3.5 Globulin 3.3 Albumin/Globulin Ratio 1.1 Procalcitonin 0.06 Urine Color Yellow Urine Appearance Cloudy A Urine pH 5.5 Ur Specific [place] 1.020 Urine Protein Negative Urine Glucose (UA) Negative Urine Ketones Negative Urine Blood Trace H Urine Nitrite Negative Urine Bilirubin Negative Urine Urobilinogen Negative Ur Leukocyte Esterase Trace H Urine WBC (Auto) 1-5 Urine RBC (Auto) 0-4 U Hyaline Cast (Auto) 1-5 U Epithel Cells (Auto) >30 H Urine Bacteria (Auto) Negative Calcium Oxalate Crystal Present A Urine Yeast Not Reportable PG Care Time/CCT Total # of Minutes Spent Total Time Spent with Patient: Total time spent is greater than 50% in coordination of care (as documented) at patient's floor/unit and/or counseling patient: Coding Level of Care Code 56848 SUB INP/OBS CARE 2/35MIN Diagnoses Fever R50.9 Urinary tract infection N39.0 Hypoxia R09.02 HTN (hypertension) I10 Presence of cardiac pacemaker Z95.0 Peripheral neuropathy G62.9 Dehydration E86.0 Tremor R25.1 Memory loss R41.3 Parkinsonism G20.C Hypercalcemia E83.52
[2023-05-30 23:24] LABS: A calco-baum cmplx NotReported Not Detected (NotDetected); Bact fragilis Not Reported Not Detected (NotDetected); Blood Culture Id Panel See PCR Comment (NotDetected); C auris Not Reported Not Detected (NotDetected); Calbicans Not Reported Not Detected (NotDetected); Candida glabrata Not Reported Not Detected (NotDetected); Candida krusei Not Reported Not Detected (NotDetected); Cneoformans/gatti Not Reported Not Detected (NotDetected); Cparapsilosis Not Reported Not Detected (NotDetected); E cloacae compx Not Reported Not Detected (NotDetected); Efaecalis Not Reported Not Detected (NotDetected); Efaecium Not Reported Not Detected (NotDetected); Enterobacterales Not Reported Not Detected (NotDetected); Escherichia coli Not Reported Not Detected (NotDetected); H influenzae Not Reported Not Detected (NotDetected); K aerogenes Not Reported Not Detected (NotDetected); Koxytoca Not Reported Not Detected (NotDetected); Kpneumoniae grp Not Reported Not Detected (NotDetected); Lmonocyt Not Reported Not Detected (NotDetected); N meningitidis Not Reported Not Detected (NotDetected); P aeruginosa Not Reported Not Detected (NotDetected); Proteus spp Not Reported Not Detected (NotDetected); Salmonella spp Not Reported Not Detected (NotDetected); Smarcescens Not Reported Not Detected (NotDetected); Staph lugdunensis Not Reported Not Detected (NotDetected); Staph spp. Not Reported DETECTED (NotDetected); Staphaureus Not Reported Not Detected (NotDetected); Staphepi Not Reported Not Detected (NotDetected); Stenmaltophilia Not Reported Not Detected (NotDetected); Strep agal(GrpB) Not Reported Not Detected (NotDetected); Strep pneum Not Reported Not Detected (NotDetected); Strep pyog (GrpA) Not Reported Not Detected (NotDetected); Strep spp Not Reported Not Detected (NotDetected)
[2023-05-30 23:54] LABS: Staphylococcus spp. DETECTED (NotDetected)
[2023-05-31] MEDS ORDERED: VANCOMYCIN CONSULT ACTIVE PRN (00:25)
[2023-05-31] MEDS: VANCOMYCIN HCL 1,750 MG in SODIUM CHLORIDE 0.9% 500 ML IV ONE (00:41)
--- NOTE | 2023-05-31 04:00 | Communication Note ---
Notified that 1/2 blood cultures were positive for gram positive bacilli, gram positive cocci in clusters; PCR with staph, unknown species. Will start vancomycin pending final cultures. Date of Service: May 31, 2023
[2023-05-31] MEDS ORDERED: Nursing to Pharmacy Communication SCH (11:00)
[2023-05-31 11:06] LABS: Calcium 9.8 mg/dl (8.6-10.3); Creatinine Clr Calc Pharmacy 49.9 ml/min; Est GFR (African American) 76.3 ml/min; Est GFR (Non-African American) 65.8 ml/min; Potassium 3.9 mmol/L (3.5-5.1)
--- NOTE | 2023-05-31 11:24 | Pharmacy Report ---
Pharmacy PK ABX Note - Date of Service May 31, 2023 - Assessment and Plan Assessment 87 year old F receiving vancomycin for treatment of fevers/bacteremia. Pertinent microbiologic data includes: blood culture growing GPCs and gram pos bacilli in anaerobic bottle (04/01) Day # 1 of antimicrobial therapy. Plan Vancomycin * Loading dose: 1750 mg IV x 1 * Maintenance dose: 1000 mg IV every 18 hours * Regimen is predicted to achieve target AUC/CLIFF of 400-600 mg/L.hr * Random level ordered for: 06/02/23 @0330 Pharmacy will continue to follow and will adjust dose/frequency as necessary. Thank you. Pharmacy has transitioned to AUC monitoring for vancomycin. AUC/CLIFF is the preferred PK/PD target and is associated with decreased risk of nephrotoxicity compared to traditional trough targets.
[2023-05-31] MEDS: VANCOMYCIN HCL 1,000 MG in SODIUM CHLORIDE 0.9% 250 ML IV SCH (16:34)
--- NOTE | 2023-05-31 19:17 | Hospitalist Progress Note ---
Date of Service May 31, 2023 Assessment & Plan (1) Fever: Plan: fevers occurred late PM of 05/27 until early AM of 05/29 --> source uncertain CT chest/abd/pelvis at admission neg for infectious etiology due to gallstones on CT checked gall bladder u/s - gallstones present, but no signs to suggest cholecystitis u/a at admission completely neg blood cx's at admission neg biofire at admission neg repeat COVID/flu/RSV neg procal negative repeat cxr negative urine cx from outside hospital ([place]) was negative (done a few days before admission to [facility]) repeat urine cx negative repeat blood cx's from 05/29 --- 1 out of 4 bottles + for GPR and GPC -- likely to be contaminants; other 3 bottles negative only thing on exam is a rash on her back, upper buttocks, hip areas, and backs of upper arms could be viral rash, but would expect the rash to be on the anterior side of her body, too, if viral rash could be irritant rash given the distribution in light of the rash & recent low-grade fevers will - * check EBV/CMV/parvo titers * recheck CRP * cont IV vanco started for the 1 bottle + for GPR/GPC but suspect will be able to stop vanco once the 2 bacteria are identified fully (2) Urinary tract infection: Plan: dx with such at [facility] several days prior to admission final culture at [place] with no growth U/A at [place] was not terribly suspicious for UTI despite the negative culture we completed a full 7 days of abx with repeat fevers on 05/27 and 05/28 I repeated a u/a and urine cx - no UTI found (3) Hypoxia: Plan: present in the ER shortly after presentation resolved rapidly CTA chest neg for acute findings multiple cxr's since admission negative sats remain normal in RA (4) HTN (hypertension): Plan: cont home meds control acceptable (5) Presence of cardiac pacemaker: Plan: with reported weakness at home will obtain pacer interrogation - r/o dysrhythmia, etc multiple attempts to interrogate the device w/o success follows with a Dr Carey in [place] -- last interrogation was 02/2023; records obtained and the interrogation then was NORMAL (6) Peripheral neuropathy: Plan: cont gabapentin TID (7) Dehydration: Plan: resolved eating well (8) Tremor: Plan: severe appreciate Dr Haney's consult from neurology he recommends to stop the inderal he feels she does indeed have parkinsonism but advises against initiating me dicine while hospitalized suggests she f/u with [facility] a few weeks post-discharge (9) Memory loss: Plan: 1-2 years Lewy-Body dementia? vascular dementia? other? appreciate neuro eval check B1 level - placed on empiric thiamine while awaiting level B12 level 367 -- low-normal -- supplement TSH 4.4 (10) Parkinsonism: Plan: as dx by neurology - Dr Haney [facility] f/u post-discharge recommended by Dr Haney (11) Hypercalcemia: Plan: very mild intact PTH wnl 25-OH vit D level robust - will hold in the setting of the mildly high Ca repeat BMP still with mildly elevated calcium placed back on IV fluids repeat calcium level today acceptable she was not on meds at home that would cause high calcium trend/monitor Plan DVT proph - heparin 5000 BID I updated the pt's daughter at bedside extensively cont PT, OT rehab post-discharge - [facility] discharge next 1-2 days ?? Admission and Anticipated Discharge Date Admission Date: May 24, 2023 Subjective tele overnight - pacing daughter at bedside during the visit pt feeling well today only complaint is that of mild itching over her back denies all other complaints (see ROS) eating well today +stool on 05/29 Review of Systems Review of Systems: gen - no fevers or chills, feels good today cv - no chest pain, no orthopnea GI - no abd pain/nausea/emesis/diarrhea - no dysuria skin - rash (back, arms) HENT - no congestion or sore throat pulm - no cough musculo - no myalgias or arthralgias Physical Exam Physical Exam: gen - NAD, flat affect, laying in bed comfortably, looks good today, even smiled mouth - MMM neck - no JVD heart - RRR, s1 s2, no murmur lungs - scant dry rales L base, ow CTA b/l abd - soft NT ND BS+ ext - no edema, pulses 2+ b/l neuro - baseline tremors, masked facies - unchanged skin - erythematous macularpapular rash on back, upper buttocks, and backs of both upper arms; all other areas spared of rash musculo - no synovitis of any joint of upper or lower ext; passive ROM of both hips elicits little to no pain Results & Data Results & Data Vital Signs (Past 12 Hours) Vital Signs Temp Pulse Pulse Resp BP Pulse Ox O2 Del Method 05/31/23 16:50 37.1 C 59 L 16 147/75 H 91 Room Air 05/31/23 15:00 60 05/31/23 12:13 36.5 C 94 H 16 129/68 92 Room Air 05/31/23 08:34 36.8 C 46 L 16 133/78 99 Room Air Laboratory Results Laboratory Results - last 24 hr 05/30/23 05/31/23 10:51 10:27 Sodium 133 L Potassium 3.9 Chloride 104 Carbon Dioxide 25 Anion Gap 4 BUN 20 Creatinine 0.80 Est Cr Clr Drug Dosing 49.9 Est GFR ( Amer) 76.3 Est GFR (Non-Af Amer) 65.8 BUN/Creatinine Ratio 25.0 H Glucose 139 H Calcium 9.8 Staphylococcus sp PCR DETECTED A Bld Cult ID Panel PCR See PCR Comment Diagnostic Findings Microbiology 05/30/23 10:51 Blood Aerobic Blood Culture - Preliminary No growth in Aerobic bottle after 24 hours. 05/30/23 10:51 Blood Anaerobic Blood Culture - Preliminary Bacillus species not anthracis Gram positive cocci clusters 05/30/23 10:43 Blood Aerobic Blood Culture - Preliminary No growth in Aerobic bottle after 24 hours. 05/30/23 10:43 Blood Anaerobic Blood Culture - Preliminary No growth in Anaerobic bottle after 24 hours. 05/30/23 Unknown Urine,Straight Cath Urine Culture - Final Three types of organisms present, all high counts. Repeat collection recommended. No further identifications or sensitivities to follow. 05/24/23 20:27 Blood Aerobic Blood Culture - Final No growth in Aerobic bottle after 5 days. 05/24/23 20:27 Blood Anaerobic Blood Culture - Final No growth in Anaerobic bottle after 5 days. 05/24/23 20:37 Blood Aerobic Blood Culture - Final No growth in Aerobic bottle after 5 days. 05/24/23 20:37 Blood Anaerobic Blood Culture - Final No growth in Anaerobic bottle after 5 days. PG Care Time/CCT Total # of Minutes Spent Total Time Spent with Patient: Total time spent is greater than 50% in coordination of care (as documented) at patient's floor/unit and/or counseling patient: Coding Level of Care Code 02097 SUB INP/OBS CARE 2/35MIN Diagnoses Fever R50.9 Urinary tract infection N39.0 Hypoxia R09.02 HTN (hypertension) I10 Presence of cardiac pacemaker Z95.0 Peripheral neuropathy G62.9 Dehydration E86.0 Tremor R25.1 Memory loss R41.3 Parkinsonism G20.C Hypercalcemia E83.52
[2023-06-01 08:07] LABS: BUN Creatinine Ratio 23.2 (10-20); Creatinine Clr Calc Pharmacy 48.7 ml/min; Est GFR (Non-African American) 63.9 ml/min; Potassium 4.3 mmol/L (3.5-5.1)
--- NOTE | 2023-06-01 17:59 | Hospitalist Progress Note ---
Date of Service June 01, 2023 Assessment & Plan (1) Fever: Plan: fevers occurred late PM of 05/27 until early AM of 05/29 --> source uncertain and appears to have resolved CT chest/abd/pelvis at admission neg for infectious etiology due to gallstones on CT checked gall bladder u/s - gallstones present, but no signs to suggest cholecystitis u/a at admission completely neg blood cx's at admission 05/24 negative biofire at admission neg repeat COVID/flu/RSV neg procal negative repeat cxr negative urine cx from outside hospital ([place]) was negative (done a few days before admission to [facility]) repeat urine cx negative repeat blood cx's from 05/29 --- 1 out of 4 bottles + for Bacillus and GPC (staph by molecular) -- likely to be contaminants; other 3 bottles remain negative only thing on exam is a rash on her back, upper buttocks, hip areas, and backs of upper arms could be viral rash, but would expect the rash to be on the anterior side of her body, too, if viral rash could be irritant rash given the distribution -rash has not progressed in light of the rash & recent low-grade fevers will - * check EBV/CMV/parvo titers - pending * recheck CRP 1.12 --> P * cont IV vanco started for the 1 bottle - Bacillus is a contaminant and await speciation of the staph reviewed chart and overall hospital course - seems likely to have been a viral illness or a mild aspiration pneumonitis (context of parkinsonism and transient hypoxia around the time of admission) (2) Urinary tract infection: Plan: dx with such at [facility] several days prior to admission final culture at [place] with no growth U/A at [place] was not terribly suspicious for UTI despite the negative culture we completed a full 7 days of abx with repeat fevers on 05/27 and 05/28 I repeated a u/a and urine cx - no UTI found (3) Hypoxia: Plan: present in the ER shortly after presentation resolved rapidly CTA chest neg for acute findings multiple cxr's since admission negative sats remain normal in RA (4) HTN (hypertension): Plan: cont home meds control acceptable (5) Presence of cardiac pacemaker: Plan: with reported weakness at home will obtain pacer interrogation - r/o dysrhythmia, etc multiple attempts to interrogate the device w/o success follows with a Dr Carey in [place] -- last interrogation was 02/2023; records obtained and the interrogation then was NORMAL (6) Peripheral neuropathy: Plan: cont gabapentin TID (7) Dehydration: Plan: resolved eating well (8) Tremor: Plan: severe appreciate Dr Haney's consult from neurology he recommended to stop the inderal he feels she does indeed have parkinsonism but advises against initiating medicine while hospitalized suggests she f/u with [facility] a few weeks post-discharge (9) Memory loss: Plan: 1-2 years Lewy-Body dementia? vascular dementia? other? appreciate neuro eval check B1 level - placed on empiric thiamine while awaiting level B12 level 367 -- low-normal -- supplement TSH 4.4 (10) Parkinsonism: Plan: as dx by neurology - [facility] post-discharge recommended by Dr Haney (11) Hypercalcemia: Plan: very mild intact PTH wnl 25-OH vit D level robust - will hold in the setting of the mildly high Ca repeat BMP still with mildly elevated calcium placed back on IV fluids repeat calcium level acceptable she was not on meds at home that would cause high calcium trend/monitor -AM BMP Plan DVT proph - heparin 5000 BID cont PT, OT rehab post-discharge - [facility] discharge tomorrow likely Admission and Anticipated Discharge Date Admission Date: May 24, 2023 Subjective feels well today, no complaints, back not itchy today, no further fevers no cough, CP, abd px or dysuria Physical Exam 2 Physical Exam: PHYSICAL EXAMINATION Last 24h vital signs reviewed, see documentation in flowsheet General: comfortable appearing, no distress HEENT: Normocephalic, atraumatic, pupils round and equal, sclerae anicteric, no conjunctival injection, moist mucus membranes Lungs: Normal respiratory effort. Clear to auscultation bilaterally. No RRW Heart: Regular rate and rhythm, no murmurs. No JVD Abdomen: Soft, nontender, nondistended. Bowel sounds present. Extremities: Warm, dry, well-perfused. No extremity edema. Neuro: Alert and oriented x hospital, basic situation, vague responses, face symmetric, moves 4 extremities well skin: Maculopapular rash on back in dependent areas, no rash on trunk abdomen arms legs face Psych: Normal affect and behavior Results & Data Results & Data Vital Signs (Past 12 Hours) Vital Signs Temp Pulse Pulse Resp BP Pulse Ox O2 Del Method 06/01/23 14:01 60 06/01/23 12:36 36.7 C 61 16 117/72 93 Room Air 06/01/23 10:01 Room Air 06/01/23 08:32 36.9 C 60 16 153/89 H 92 Room Air 06/01/23 07:00 64 Laboratory Results 05/30/23 10:43 06/01/23 07:12 PG Care Time/CCT Total # of Minutes Spent Total Time Spent with Patient: Total time spent is greater than 50% in coordination of care (as documented) at patient's floor/unit and/or counseling patient: Coding Level of Care Code 03969 SUB INP/OBS CARE 2/35MIN Diagnoses Fever R50.9 Urinary tract infection N39.0 Hypoxia R09.02 HTN (hypertension) I10 Presence of cardiac pacemaker Z95.0 Peripheral neuropathy G62.9 Dehydration E86.0 Tremor R25.1 Memory loss R41.3 Parkinsonism G20.C Hypercalcemia E83.52
[2023-06-02 03:48] LABS: Hematocrit (blood only) 37.7 % (37.0-47.0); Hemoglobin 12.6 g/dl (12.0-16.0); Mean Corpuscular Hemoglobin 29.3 pg (25.0-34.0); Mean Corpuscular Hgb Conc 33.4 g/dL (32.0-36.0); Mean Corpuscular Volume 87.7 fL (80.0-100.0); Mean Platelet Volume 9.4 fL (9.4-12.4); Platelet Count 273 K/uL (130-400); RDW Coefficient of Variation 12.9 % (11.5-14.5); RDW Standard Deviation 41.4 fL (36.4-46.3); White Blood Count 7.54 K/ul (4.8-10.8)
[2023-06-02 04:05] LABS: BUN Creatinine Ratio 21.1 (10-20); C Reactive Protein 3.46 mg/dl (0-0.5); Calcium 9.7 mg/dl (8.6-10.3); Creatinine Clr Calc Pharmacy 44.3 ml/min; Est GFR (African American) 66.2 ml/min; Est GFR (Non-African American) 57.1 ml/min; Potassium 4.2 mmol/L (3.5-5.1)
[2023-06-02] MEDS: VANCOMYCIN LEVEL ONE (04:27)
--- NOTE | 2023-06-02 19:21 | Discharge Summary ---
Date of Service June 02, 2023 Admission HPI Per Admitting Provider The patient is a 87-year-old female with a past medical history including hypertension, peripheral neuropathy, vitamin D deficiency, status post pacer placement and urinary tract infection. She presents to the emergency department as noted above. She continues to have some symptoms of urinary tract infection, but over the past 3 days has had significant progression of generalized weakness and difficulty with ambulation. She has not had these type of symptoms in the past. She does live alone in [place], with family close by. Principal Diagnosis UTI, fever, parkinsonism, thiamine deficiency Discharge Exam PHYSICAL EXAMINATION Last 24h vital signs reviewed, see documentation in flowsheet General: comfortable appearing, no distress HEENT: Normocephalic, atraumatic, pupils round and equal, sclerae anicteric, no conjunctival injection, moist mucus membranes Lungs: Normal respiratory effort. Clear to auscultation bilaterally. No RRW Heart: Regular rate and rhythm, no murmurs. No JVD Abdomen: Soft, nontender, nondistended. Bowel sounds present. Extremities: Warm, dry, well-perfused. No extremity edema. Neuro: Alert and oriented x hospital and basic situation, masked facies, forgetful/confused, face symmetric, moves 4 extremities well, bilateral UE cogwheeling, not rigid, no tremor presently Psych: Normal affect and behavior Discharge Data Allergies Allergy/AdvReac Type Severity Reaction Status Date / Time acetaminophen [From Tylenol] Allergy Unknown Please see Unverified 05/24/23 20:14 comment. Consultations 05/24/23 21:56 ED Decision to Admit Stat 05/27/23 08:57 Consult Neurology Routine Ordered Studies 05/24/23 18:17 CT head/brain wo con Stat 05/24/23 18:32 CT abd pelvis IV con only Stat CT angio chest PE protocol Stat 05/29/23 16:49 US gallbladder Urgent Hospital Course (1) Fever: 87 y/o admitted with ongoing fever, had recently started treatment for UTI fevers occurred late PM of 05/27 until early AM of 05/29 --> source uncertain (likely was from preexisting UTI vs minor aspiration pneumonitis or viral syndrome) and resolved Extensive workup this admission as detailed below was unrevealing: CT chest/abd/pelvis at admission neg for infectious etiology due to gallstones on CT checked gall bladder u/s - gallstones present, but no signs to suggest cholecystitis u/a at admission completely neg blood cx's at admission 05/24 negative resp biofire at admission neg repeat COVID/flu/RSV neg procal negative repeat cxr negative urine cx from outside hospital ([place]) was negative (done a few days before admission to [facility]) repeat urine cx negative repeat blood cx's from 05/29 --- 1 out of 4 bottles + for Bacillus and GPC (staph by molecular); other 3 bottles remain negative -final sensitivity on staph still pending but has been 72h and molecular assay did not detect staph aureus so this is highly likely to reflect skin contamination, stopped vancomycin. Bacillus in same bottle is a contaminant. only thing on exam is a rash on her back, upper buttocks, hip areas, and backs o f upper arms could be viral rash, but would expect the rash to be on the anterior side of her body, too, if viral rash likely irritant/contact rash given the distribution -rash has not progressed and substantially improved/near resolving by 06/01 -continue triamcinolone still pending: * EBV/CMV/parvo titers, repeat blood culture from 05/29 as above reviewed chart and overall hospital course - seems likely to have been related to UTI, a viral illness or a mild aspiration pneumonitis (context of parkinsonism and transient hypoxia around the time of admission) (2) Urinary tract infection: dx with such at [facility] several days prior to admission final culture at [place] with no growth U/A at [place] was not terribly suspicious for UTI despite the negative culture we completed a full 7 days of abx with repeat fevers on 05/27 and 05/28 I repeated a u/a and urine cx - no UTI found (3) Hypoxia: present in the ER shortly after presentation resolved rapidly CTA chest neg for acute findings multiple cxr's since admission negative sats remain normal in RA potentially was a mild aspiration pneumonitis (4) HTN (hypertension): cont home meds control acceptable (5) Presence of cardiac pacemaker: with reported weakness at home will obtain pacer interrogation - r/o dysrh ythmia, etc multiple attempts to interrogate the device w/o success follows with a Dr Carey in [place] -- last interrogation was 02/2023; records obtained and the interrogation then was NORMAL (6) Peripheral neuropathy: cont gabapentin TID (7) Dehydration: resolved eating well (8) Tremor: severe appreciate Dr Haney's consult from neurology he recommended to stop the inderal he feels she does indeed have parkinsonism but advises against initiating medicine while hospitalized please schedule f/u with [facility] a few weeks post-discharge (9) Memory loss: 1-2 years Lewy-Body dementia? vascular dementia? other? appreciate neuro eval checked B1 level - placed on empiric thiamine while awaiting level - this resulted after discharge and was low at <6 -please continue B1 200 mg bid for several weeks for replacement then decrease to 100 mg daily indefinite supplementation B12 level 367 -- low-normal -- supplement TSH 4.4 (10) Parkinsonism: as dx by neurology - Dr Haney [facility] neuro f/u post-discharge recommended by Dr Haney (11) Hypercalcemia: very mild intact PTH wnl 25-OH vit D level robust - will hold in the setting of the mildly high Ca repeat BMP still with mildly elevated calcium placed back on IV fluids repeat calcium level acceptable she was not on meds at home that would cause high calcium, immobility may be a factor trend/monitor -please recheck blood calcium level in future perhaps 2-4 weeks when mobility improved Plan DVT proph - heparin 5000 BID cont PT, OT rehab post-discharge - [facility] Total Time Total Time Spent Total Time Spent (In Minutes): I personally spent: 40 minutes today on clinical care activities for discharge including: reviewing chart notes and vital signs reviewing labs discussion with career center advisor examining and counseling the patient writing orders documentation Discharge Plan Discharge Items Patient Disposition: Transfer Inpatient Rehab Fac Reason For Visit: GENERALIZED WEAKNESS, UTI, HYPOXIA Discharge Diagnosis: Fever, resolved possibly viral syndrome, parkinsonism Activity: Resume your previous activity Non-emergency contact: Primary Care Provider Call non-emergency contact if: you have any medication questions and your symptoms worsen Follow-up/Referrals: Tiffany Carranza DO [Primary Care Provider] - Diet: Regular Diet Comment: texture - minced and mist Addtl Attending Provider Instructions: Please schedule follow up with [facility] neurology for parkinsonism Blood cultures from 05/29 not finalized - staph (highly likely CONS contaminant) in 1 bottle out of 4 to date, Bacillus in same bottle highly likely a contaminant Pending Studies at Discharge: Yes Stand-Alone Forms: My [facility] Skilled Items Patient informed of condition?: Yes DNR: No Discharge Level of Care: Acute rehab Communicable Disease: No Discharge Prognosis: Improving Lines: None Urinary Catheter: No Medications and DC Order Prescriptions: New nystatin 100,000 unit/gram Cream 1 applic EXT BID Qty: 0 0RF triamcinolone acetonide 0.1 % Cream 1 applic EXT TID Qty: 0 0RF cholecalciferol (vitamin D3) 125 mcg (5,000 unit) Tablet 125 mcg PO DAILY Qty: 0 0RF cyanocobalamin (vitamin B-12) 500 mcg Tablet 1,000 mcg PO QAM Qty: 0 0RF thiamine HCl (vitamin B1) 100 mg Tablet 200 mg PO BID Qty: 0 0RF Continued amlodipine 5 mg tablet 5 mg PO DAILY gabapentin 100 mg capsule 100 mg PO TID losartan 100 mg tablet 100 mg PO DAILY metoprolol tartrate 25 mg tablet 25 mg PO BID Discontinued propranolol 60 mg capsule,extended release 24 hr 60 mg PO DAILY cephalexin 500 mg capsule 500 mg PO BID Rx Instructions: Start Date 05/22/23 - End Date 05/29/23. Patient has taken 5 doses as of 05/24/23. cholecalciferol (vitamin D3) 125 mcg (5,000 unit) tablet 5,000 unit PO DAILY Discharge Orders: Discharge Order (Routine); Ordered 06/02/23 Ordered By: Lisandra Nicolas/Other Patient Handouts: Urinary Tract Infections in Women Admission Data Admit Date/Time: 05/24/23 22:43 Attending Provider: Lisandra Lopez Admit Provider: Guanaco Frankel Primary Care Provider: Tiffany Carranza Other Providers: [facility]; Guanaco Frankel; Elpidio Haney Coding Level of Care Code 73606 INP/OBS DISCH >30 MIN Diagnoses Fever R50.9 Urinary tract infection N39.0 Hypoxia R09.02 HTN (hypertension) I10 Presence of cardiac pacemaker Z95.0 Peripheral neuropathy G62.9 Dehydration E86.0 Tremor R25.1 Memory loss R41.3 Parkinsonism G20.C Hypercalcemia E83.52
[2023-06-03 15:38] LABS: CMV IgM Antibody <30.00 AU/mL; Parvovirus IgG 3.7 (<0.9); Parvovirus IgM 0.1 (<0.9)
--- NOTE | 2023-06-04 07:05 | Communication Note ---
Date of Service: June 04, 2023 Results review - discharged to [facility] rehab 06/02/23. Blood cultures from 05/29 one set negative both bottles second set bacillus and coag neg staph in anaerobic bottle consistent with contamination, aerobic bottle negative CMV, EBV, parvovirus serologies resulted - all consistent with old/past infection B1 level low at <6 -see discusion in discharge summary -was discharged on thiamine 200 mg po bid - continue active replacement and indefinite maintenance supplementation after that
== END 2023-06-02 13:32 | DRG 690 ==
LOC: ED 17:30 → SUATTDRO 22:43 → EDINP 22:43 → 2W 05-25 00:48 → 3W 06-01 23:29

== ENCOUNTER 2023-06-27 12:14 | Inpatient (IN) ==
--- NOTE | 2023-06-27 12:26 | ED Triage Note ---
Date of Service June 27, 2023 Provider in Triage Author: Shereen Wiley History of Present Illness This patient was briefly evaluated while in triage. An abbreviated physical exam was performed. This patient is a 87-year-old Female who presents to the ED for evaluation of hip pain. She was having some weakness and couldn't walk out of the bathroom. She was sitting on her walker due to this and her daughter was trying to get her over a small ledge when they both fell. The patient reports she fell onto her right hip and has pain in the hip when she tries to stand up. Physical Exam GENERAL: Non-toxic and in no acute distress. Sitting up in wheelchair in triage. NEURO: Alert and oriented. No obvious neurological deficits on quick neuro exam. MUSCULOSKELETAL: No deformity. Patient unable to ambulate. Tenderness in the r ight hip. Initial orders for labs and / or imaging were placed and patient was placed in the waiting area until a bed is available. Please see further documentation for the full ED course.
--- NOTE | 2023-06-27 12:58 | Emergency Department Note ---
Impression & Plan Inferior pubic ramus fracture, Fall ED Provider Note NAME: PIYUSH CAAL AGE: 87 SEX: F : 1935 ARRIVES VIA: Ambulance INFORMANT: Patient ED PROVIDER(S): Andrews Licona MD CHIEF COMPLAINT: Right hip pain PLAN: Disposition: Admit MEDICAL DECISION MAKING: The patient a pleasant 87-year-old woman with past medical history of parkinsonism, ambulatory dysfunction, CKD who presents to the emergency department via EMS for evaluation of right hip pain after the patient had a fall when she was tempted to the bathroom last night assisted by her daughter with her walker which had a seat which she needed to use abruptly because of feeling weakness. However when attempting to maneuver this around a lip in the floor fell onto her right side. Denies any head strike or loss of consciousness. She was unable to stand and bear weight this morning. The patient was recently discharged from [facility] after a hospitalization for urinary tract infection and associated debility/deconditioning. Of note, the patient did arrive to emergency department during time of high volume, acuity and prolonged emergency department waiting times. Critical pathways initiated from triage. On evaluation patient is uncomfortable no acute distress, afebrile with stable vital signs. She has limited range of motion of the right hip secondary to pain. There is no gross deformity. Distal PMS is intact. Head is atraumatic. There is no CTL spine tenderness palpation or step-offs. WBC, H/H and platelets within normal limits. Chemistry without metabolic acidosis. Creatinine 1.2 slightly increased from prior values. LFTs unremarkable. Plain films of the pelvis and right hip/femur demonstrate nondisplaced fracture of the inferior pubic ring. Case was discussed with Dr. Balbuena, [facility] hospitalist, who will evaluate the patient for admission. UA subsequently suspicious for infection. Further management per admitting team. Triage Nursing notes reviewed and agree them. Prior/external medical records reviewed Vital Signs: reviewed Differential diagnosis: Fracture, subluxation, dislocation, contusion, ligamentous injury, neurovascular, compartment syndrome, rhabdomyolysis, as well as other pathologies. ER treatment provided: See below. Diagnostics interpreted by me: ECG: Atrial paced rhythm, 60 bpm, no ectopy, LVH, no overt ST elevation or depression, QTc 380, QRS 86. Cardiac Monitoring: An order for continuous cardiac monitoring was placed and demonstrated atrial paced rhythm, 60 bpm, no ectopy. Laboratory studies: See below Imaging studies: See below Consultation(s): Case was discussed with Dr. Balbuena, [facility] hospitalist, who will evaluate the patient for admission. HPI: The patient a pleasant 87-year-old woman with past medical history of parkinsonism, ambulatory dysfunction, CKD who presents to the emergency department via EMS for evaluation of right hip pain after the patient had a fall when she was tempted to the bathroom last night assisted by her daughter with her walker which had a seat which she needed to use abruptly because of feeling weakness. However when attempting to maneuver this around a lip in the floor fell onto her right side. Denies any head strike or loss of consciousness. She was unable to stand and bear weight this morning. ROS: See above HPI for pertinent positives & negatives. A total of 10 systems reviewed and were otherwise negative. VITALS:See Below PHYSICAL EXAMINATION: GENERAL: Awake, alert, in no distress HENT: Normocephalic, atraumatic. Oropharynx unremarkable. EYES: Normal conjunctiva. Sclera non-icteric. NECK: Supple. No nuchal rigidity. FROM. No JVD. RESPIRATORY: Clear to auscultation. CARDIAC: Regular rate, normal rhythm. Extremities warm and well perfused. Pulses equal. ABDOMEN: Soft, non-distended. No tenderness to palpation. No rebound or guarding. No masses. MUSCULOSKELETAL: Chest examination reveals no tenderness. The back is symmetrical on inspection without obvious abnormality. There is no CVA tenderness to palpation. Limited range of motion of the right hip secondary to pain. There is no gross deformity. Distal PMS is intact. LOWER EXTREMITIES: Calves are equal size bilaterally and non-tender. No edema. No discoloration. NEURO: Normal sensorium. No sensory or motor deficits noted. SKIN: No rash or jaundice noted. Andrews Licona MD Past Med/Surg History Medical History Peripheral neuropathy Presence of cardiac pacemaker Urinary tract infection No pertinent family history HTN (hypertension) Surgical History No pertinent past surgical history Social History Smoking Status: Never smoker Second Hand Exposure: No; Do You Dip or Chew Tobacco: No; Tobacco Cessation Education Requested by Patient: No Hx Alcohol Use: No Hx Substance Use: No Preferred Language: Swedish Communication Ability: Effective Clinical Implementation Specialist Required: No Beliefs That Will Affect Care: None Current Living Situation: Family Current Living Situation Comment: With daughter Other Information That Helps Us Care for You: No Feels Safe at Home: Yes Safety Concerns: Feels Safe At This Time Assistive Devices: Glasses and Walker Allergies Allergies Allergy/AdvReac Type Severity Reaction Status Date / Time acetaminophen [From Tylenol] Allergy Unknown Please see Unverified 05/24/23 20:14 comment. Home Meds Home Medications Medication Instructions Recorded Confirmed amlodipine 5 mg tablet 5 mg PO DAILY 05/24/23 06/27/23 gabapentin 100 mg capsule 100 mg PO TID 05/24/23 06/27/23 losartan 100 mg tablet 100 mg PO DAILY 05/24/23 06/27/23 bacitracin zinc 500 unit/gram 1 applic topical UD 06/27/23 06/27/23 topical ointment metoprolol tartrate 50 mg tablet 50 mg PO BID 06/27/23 06/27/23 Previous Rx's Medication Instructions Recorded cholecalciferol (vitamin D3) 125 125 mcg PO DAILY #0 tabs 06/02/23 mcg (5,000 unit) tablet cyanocobalamin (vitamin B-12) 500 1,000 mcg (2 x 500 mcg) PO QAM #0 06/02/23 mcg tablet tabs nystatin 100,000 unit/gram topical 1 applic EXT BID #0 grams 06/02/23 cream thiamine HCl (vitamin B1) 100 mg 200 mg (2 x 100 mg) PO BID #0 tabs 06/02/23 tablet triamcinolone acetonide 0.1 % 1 applic EXT TID #0 grams 06/02/23 topical cream donepezil 5 mg tablet 5 mg PO HS #30 tabs 06/24/23 Results & Data (ED) Vital Signs Vital Signs - 24 hr 06/27/23 12:22 06/27/23 12:57 06/27/23 13:13 Temperature 36.6 C Temperature Source Temporal Artery Scan Pulse Rate 61 60 Pulse Rate [Apical] 61 Pulse Rhythm [Apical] Regular Pulse Strength [Apical] Normal Respiratory Rate 19 19 Respiratory Effort / Characteristics Non-Labored Spontaneous Non-Labored Spontaneous Respiratory Depth Normal Normal Respiratory Pattern Regular Blood Pressure 179/74 H Blood Pressure [Right Arm] 159/82 H Blood Pressure Mean 109 Blood Pressure Mean [Right Arm] 107 Blood Pressure Position [Right Arm] Pulse Oximetry 94 93 Oxygen Delivery Method Room Air Room Air Sepsis Recent Fever Within 48 Hours No Sepsis New/Unexplained Change in Mental Status No Sepsis Action Taken by Nursing No Action Required 06/27/23 14:19 06/27/23 15:00 Temperature Temperature Source Pulse Rate Pulse Rate [Apical] 60 60 Pulse Rhythm [Apical] Regular Pulse Strength [Apical] Normal Respiratory Rate 17 20 Respiratory Effort / Characteristics Non-Labored Spontaneous Non-Labored Spontaneous Respiratory Depth Normal Normal Respiratory Pattern Regular Regular Blood Pressure Blood Pressure [Right Arm] 145/90 H 145/74 H Blood Pressure Mean Blood Pressure Mean [Right Arm] 108 97 Blood Pressure Position [Right Arm] Semi-fowlers Pulse Oximetry 98 93 Oxygen Delivery Method Room Air Room Air Sepsis Recent Fever Within 48 Hours Sepsis New/Unexplained Change in Mental Status Sepsis Action Taken by Nursing Laboratory Data Attestation: I reviewed the patient's lab results. 06/27/23 13:00 06/27/23 13:00 Lab Results 06/27/23 06/27/23 Range/Units 13:00 13:36 WBC 9.13 (4.8-10.8) K/ul RBC 4.76 (4.20-5.40) M/uL Hgb 14.0 (12.0-16.0) g/dl Hct 41.2 (37.0-47.0) % MCV 86.6 (80.0-100.0) fL MCH 29.4 (25.0-34.0) pg MCHC 34.0 (32.0-36.0) g/dL RDW Std Deviation 40.5 (36.4-46.3) fL RDW Coeff of Von 12.9 (11.5-14.5) % Plt Count 354 (130-400) K/uL MPV 9.0 L (9.4-12.4) fL Immature Gran % (Auto) 0.9 % Neut % (Auto) 68.1 % Lymph % (Auto) 18.7 % Divide % (Auto) 7.9 % Eos % (Auto) 3.9 % Baso % (Auto) 0.5 % Neut # (Auto) 6.21 (1.40-6.50) K/uL Lymph # (Auto) 1.71 (1.20-3.40) K/uL Divide # (Auto) 0.72 H (0.11-0.59) K/uL Eos # (Auto) 0.36 (0.00-0.50) K/uL Baso # (Auto) 0.05 (0.00-0.20) K/uL Immature Gran # (Auto) 0.08 (0.01-0.20) K/uL PT 10.6 (9.0-12.0) Seconds INR 1.0 (0.9-1.1) APTT 24 (21-31) Seconds PTT Ratio 0.9 Sodium 136 (136-145) mmol/L Potassium 4.1 (3.5-5.1) mmol/L Chloride 104 (98-107) mmol/L Carbon Dioxide 24 (21-32) mmol/L Anion Gap 8 (3-11) BUN 19 (6-23) mg/dl Creatinine 1.22 H (0.6-1.2) mg/dl Est Cr Clr Drug Dosing 33.1 ml/min Est GFR ( Amer) 45.8 ml/min Est GFR (Non-Af Amer) 39.5 ml/min BUN/Creatinine Ratio 15.6 (10-20) Glucose 154 H (70-99(Fasting)) mg/dl Calcium 10.9 H (8.6-10.3) mg/dl Total Bilirubin 0.6 (0.2-1.0) mg/dl AST 20 (13-39) U/L ALT 17 (7-52) U/L Alkaline Phosphatase 68 (34-104) U/L Total Protein 7.0 (6.0-8.3) gm/dl Albumin 3.6 (3.4-5.0) gm/dl Globulin 3.4 (2.5-4.0) gm/dl Albumin/Globulin Ratio 1.1 (0.9-2) Urine Color Dark Yellow Urine Appearance Turbid A (Clear) Urine pH 6.0 (4.5-7.5) Ur Specific [place] 1.016 (1.000-1.030) Urine Protein 2+ H (Negative) Urine Glucose (UA) Negative (Negative) Urine Ketones Negative (Negative) Urine Blood 3+ H (Negative) Urine Nitrite Positive A (Negative) Urine Bilirubin Negative (Negative) Urine Urobilinogen Negative (Negative) Ur Leukocyte Esterase 3+ H (Negative) Urine WBC (Auto) >30 H (0-5) /hpf Urine RBC (Auto) >30 H (0-4) /hpf U Hyaline Cast (Auto) 0 (0-5) /lpf U Epithel Cells (Auto) >30 H (0-5) /lpf Urine Bacteria (Auto) 2+ H (Negative) Urine Yeast Not Reportable Administered Medications Acetaminophen (Acetaminophen 325 Mg Tab) 650 mg PO Q6H FLORES Stop: 07/27/23 19:59 Last Admin: 06/28/23 02:18 Dose: Not Given Documented By: Admin: 06/27/23 20:51 Dose: 650 mg Documented By: DAYSI Donepezil HCl (Donepezil Hcl 5 Mg Tab) 5 mg PO HS FLORES Stop: 07/27/23 20:59 Last Admin: 06/27/23 20:51 Dose: 5 mg Documented By: DAYSI Gabapentin (Gabapentin 100 Mg Cap) 100 mg PO TID FLORES Stop: 07/27/23 20:59 Last Admin: 06/27/23 20:51 Dose: 100 mg Documented By: DAYSI Parenteral Electrolytes (Plasma-Lyte A Ph 7.4) 1,000 mls @ 80 mls/hr IV .[id number] FLORES Stop: 06/28/23 04:29 Last Admin: 06/27/23 16:54 Dose: 80 mls/hr Documented By: MANNY Metoprolol Tartrate (Metoprolol Tartrate 50 Mg Tab) 50 mg PO BID FLORES Stop: 07/27/23 20:59 Last Admin: 06/27/23 21:03 Dose: 50 mg Documented By: DAYSI Discontinued Medications Acetaminophen (Ofirmev) 1,000 mg in 100 mls @ 400 mls/hr IV NOW STA Stop: 06/27/23 13:22 Last Infusion: 06/27/23 14:19 Dose: Infused Documented By: Admin: 06/27/23 13:41 Dose: 400 mls/hr Documented By: SOCORRO Ceftriaxone Sodium 2,000 mg/ (Dextrose) 50 mls @ 100 mls/hr IV NOW STA; Protocol Stop: 06/27/23 16:19 Last Infusion: 03/31/24 17:51 Dose: Infused Documented By: Admin: 06/27/23 16:56 Dose: 100 mls/hr Documented By: MANNY Lidocaine (Lidocaine 5% 1 Patch) 1 patch TD NOW STA Stop: 06/27/23 15:51 Last Admin: 06/27/23 16:01 Dose: 1 patch Documented By: KAREN Miscellaneous (Remove Lidoderm Patch) 1 each N/A DAILY@2100 FLORES Stop: 06/27/23 21:01 Last Admin: 06/27/23 20:53 Dose: 1 each Documented By: DAYSI Imaging Data Radiologist's Impression: Femur X-Ray 06/27/23 12:26 SINGLE VIEW PELVIS; 3 VIEWS RIGHT FEMUR CLINICAL HISTORY: Fall. Right hip pain. FINDINGS: AP view of the pelvis with AP, frog-leg, and crosstable lateral views of the right femur are obtained. Correlation is made with pelvic CT dated 05/24/2023. The skeletal structures are osteopenic. There is a nondisplaced fracture of the right inferior pubic ring. No additional acute fracture is seen involving the hips or bony pelvis. There is no radiographic evidence of right femoral fracture. Severe osteoarthritic changes noted in the left hip. Moderate to severe arthritic change is seen in the right hip. Osteoarthritic change and chondrocalcinosis is seen in the right knee. Degenerative sclerosis is noted in the sacroiliac joints. Fusion hardware is seen at the lumbosacral junction. The overlying soft tissues are normal as imaged. Advanced atherosclerotic calcification is noted in the femoral arteries. IMPRESSION: 1. Nondisplaced fracture of the inferior right pubic ring. 2. No additional acute fracture is seen involving the hips or pelvis. 3. There is no radiographic evidence of right femoral fracture. Electronically signed by: Robert Cervantes M.D. 06/27/2023 1:23 PM Pelvis X-Ray 06/27/23 12:26 SINGLE VIEW PELVIS; 3 VIEWS RIGHT FEMUR CLINICAL HISTORY: Fall. Right hip pain. FINDINGS: AP view of the pelvis with AP, frog-leg, and crosstable lateral views of the right femur are obtained. Correlation is made with pelvic CT dated 05/24/2023. The skeletal structures are osteopenic. There is a nondisplaced fracture of the right inferior pubic ring. No additional acute fracture is seen involving the hips or bony pelvis. There is no radiographic evidence of right femoral fracture. Severe osteoarthritic changes noted in the left hip. Moderate to severe arthritic change is seen in the right hip. Osteoarthritic change and chondrocalcinosis is seen in the right knee. Degenerative sclerosis is noted in the sacroiliac joints. Fusion hardware is seen at the lumbosacral junction. The overlying soft tissues are normal as imaged. Advanced atherosclerotic calcification is noted in the femoral arteries. IMPRESSION: 1. Nondisplaced fracture of the inferior right pubic ring. 2. No additional acute fracture is seen involving the hips or pelvis. 3. There is no radiographic evidence of right femoral fracture. Electronically signed by: Robert Cervantes M.D. 06/27/2023 1:23 PM Discharge Plan Visit Data Chief Complaint: Hip Pain Stated Complaint: R HIP PAIN ED Provider: Andrews Licona Discharge Problem: Inferior pubic ramus fracture, Fall Patient Disposition: Admitted As Inpatient Discharge Instructions Interventions: ED Discharge Assessment Last Done: 06/27/23 16:08 Discharge Problem: Inferior pubic ramus fracture Qualifiers: Encounter type: initial encounter Fracture type: closed Laterality: right Q ualified Code(s): S32.591A - Other specified fracture of right pubis, initial encounter for closed fracture Fall Qualifiers: Encounter type: initial encounter Qualified Code(s): W19.XXXA - Unspecified fall, initial encounter
[2023-06-27 13:19] LABS: Basophils # (auto) 0.05 K/uL (0.00-0.20); Basophils % (auto) 0.5 %; Eosinophils # (auto) 0.36 K/uL (0.00-0.50); Eosinophils % (auto) 3.9 %; Hematocrit (blood only) 41.2 % (37.0-47.0); Immature Granulocytes # (auto) 0.08 K/uL (0.01-0.20); Immature Granulocytes % (auto) 0.9 %; Lymphocytes # (auto) 1.71 K/uL (1.20-3.40); Lymphocytes % (auto) 18.7 %; Mean Corpuscular Hemoglobin 29.4 pg (25.0-34.0); Mean Corpuscular Volume 86.6 fL (80.0-100.0); Monocytes # (auto) 0.72 K/uL (0.11-0.59); Monocytes % (auto) 7.9 %; Neutrophils # (auto) 6.21 K/uL (1.40-6.50); Neutrophils % (auto) 68.1 %; Platelet Count 354 K/uL (130-400); RDW Coefficient of Variation 12.9 % (11.5-14.5); RDW Standard Deviation 40.5 fL (36.4-46.3); Red Blood Count 4.76 M/uL (4.20-5.40); White Blood Count 9.13 K/ul (4.8-10.8)
--- NOTE | 2023-06-27 13:25 | XRay Report ---
SINGLE VIEW PELVIS; 3 VIEWS RIGHT FEMUR CLINICAL HISTORY: Fall. Right hip pain. FINDINGS: AP view of the pelvis with AP, frog-leg, and crosstable lateral views of the right femur ar e obtained. Correlation is made with pelvic CT dated 05/24/2023. The skeletal structures are osteopeni c. There is a nondisplaced fracture of the right inferior pubic ring. No additional acute fracture is seen involving the hips or bony pelvis. There is no radiographic evidence of right femoral fracture. Severe osteoarthritic changes noted in the left hip. Moderate to severe arthritic change is seen in the right hip. Osteoarthritic change and chondrocalcinosis is seen in the right knee. Degenerative sc lerosis is noted in the sacroiliac joints. Fusion hardware is seen at the lumbosacral junction. The o verlying soft tissues are normal as imaged. Advanced atherosclerotic calcification is noted in the fe moral arteries. IMPRESSION: 1. Nondisplaced fracture of the inferior right pubic ring. 2. No additional acute fracture is seen involving the hips or pelvis. 3. There is no radiographic evidence of right femoral fracture. Electronically signed by: Robert Cervantes M.D. 06/27/2023 1:23 PM
[2023-06-27 13:35] LABS: Albumin Globulin Ratio 1.1 (0.9-2); Albumin Level 3.6 gm/dl (3.4-5.0); BUN Creatinine Ratio 15.6 (10-20); Bilirubin,Total 0.6 mg/dl (0.2-1.0); Calcium 10.9 mg/dl (8.6-10.3); Creatinine Clr Calc Pharmacy 33.1 ml/min; Est GFR (African American) 45.8 ml/min; Est GFR (Non-African American) 39.5 ml/min; Globulin 3.4 gm/dl (2.5-4.0); Potassium 4.1 mmol/L (3.5-5.1)
[2023-06-27] MEDS: ACETAMINOPHEN 1,000 MG/100 ML VIAL IV STA (13:41)
[2023-06-27 13:49] LABS: Appearance Urine Turbid (Clear); Bacteria Urine Automated 2+ (Negative); Bilirubin Urine Negative (Negative); Blood Urine 3+ (Negative); Color Urine Dark Yellow; Epithelial Cell Urine Auto >30 /lpf (0-5); Glucose Urine UA Negative (Negative); Ketones Urine Negative (Negative); Leukocyte Esterase Urine 3+ (Negative); Nitrite Urine Positive (Negative); Protein Urine 2+ (Negative); RBC Urine Automated >30 /hpf (0-4); Specific Gravity Urine 1.016 (1.000-1.030); Urobilinogen Urine Negative (Negative); WBC Urine Automated >30 /hpf (0-5)
[2023-06-27 13:50] LABS: Partial Thromboplastin Ratio 0.9; Partial Thromboplastin Time 24 Seconds (21-31); Prothrombin Time 10.6 Seconds (9.0-12.0)
[2023-06-27 14:15] LABS: Cast Urine Automated 0 /lpf (0-5)
--- NOTE | 2023-06-27 15:22 | History & Physical Report ---
Date of Service June 27, 2023 Assessment & Plan (1) Inferior pubic ramus fracture: Plan: -Admit to med/surge -Currently stable and non-toxic appearing -Presented to the ED for ongoing right hip pain and ambulatory dysfunction after she fell due to her rolling walker flipping -Landed on her right side, family denies the patient hitting her head or losing consciousness -Sustained a Nondisplaced fracture of the inferior right pubic ring -Patient will need pain control and evaluation by PT/OT for ongoing care plan -Continue scheduled tylenol with PRN IV morphine for severe pain -Fall/aspiration precautions -PT/OT consult placed -HH diet with 2gm sodium restriction -BL BRIANA's for DVT PPX -AM CBC, BMP, mag (2) Fall: Plan: -Mechanical in nature -No other acute trauma on exam -Will obtain CXR for further evaluation (3) Urinary tract infection: Plan: -UA today is equivocal as she has turbid urine with nitrite positivity, 3+ leukocyte esterase, >30 WBC, 2+ bacteria, but also has >30 epithelial cells -Patient is normally only weak when she gets UTI's -For now we will treat with ceftriaxone -No previous hx of resistant organisms -Follow urine cultures -Attempt voiding trial prior to discharge (4) Memory loss: Plan: -Continue HS Donepezil -Will try to limit narcotics to prevent development of hospital acquired delirium (5) Dehydration: Plan: -Noted to be mildly dehydrated on exam and on labs -Kidney function is stable -Will give 1L Plasmalyte x 1 bag on admission for hydration -Monitor daily volume status (6) HTN (hypertension): Plan: -Stable -Continue amlodipine, losartan, and metoprolol Plan The patient was discussed with Dr. Balbuena at the time of the admission History of Present Illness Chief Complaint: Fall, right hip pain Primary Care Provider: Tiffanyregla CarranzaDO Caruso is an 87-year-old female with a past medical history including memory loss, hypertension, peripheral neuropathy, Parkinsonism, vitamin D deficiency, status post pacer placement and urinary tract infection who presented to the [facility] ED on 06/27/23 with her daughter due to a fall last night with ongoing right hip pain and ambulatory dysfunction. Vitals remained stable. Labs were significant for a cr of 1.22 (baseline is near 0.8), calcium of 10.9, and UA with turbid appearance, 2+ protein, 3+ blood, nitrite positive, 3+ Leukocyte esterase, >30 WBC, RBC, and epithelial cells, and 2+ bacteria. Xray of the right femur and pelvis was read as "1. Nondisplaced fracture of the inferior right pubic ring. 2. No additional acute fracture is seen involving the hips or pelvis. 3. There is no radiographic evidence of right femoral fracture.". Prior to admission the patient was given 1gm IV tylenol. At the time of the exam the patient was sitting in bed in no acute distress with her Daughter/POA bedside. History was mainly obtained from the patient's daughter to the patient's baseline hx of memory loss. The patient has been living with her daughter and family over the past few weeks. Last night the patient was walking to the bathroom using her rolling walker when she felt weak. She sat on the small seat attached to the rolling walker. Her daughter tried to pull the rolling walker over a small ledge between floor but one of the walker wheels became stuck and cause the walker to tip. The patient landed on her right side and did not hit her head or lose consciousness. She has been experiencing right hip pain since the fall. Family was able to lift her into bed last night, but the patient was in too much pain today to safely ambulate, even with help. When asked, the patient denies urinary symptoms. However, the patient's daughter explains that the patient never has symptoms when she gets UTI's. They deny recent fever, chills, chest pain, SOB, cough, abd pain, nausea, vomiting, hematuria, melena, LE swelling. She is a full code and her daughter is her POA. Please refer to Dr. Balbuena's attestation for any changes to the treatment plan Allergies Allergy/AdvReac Type Severity Reaction Status Date / Time acetaminophen [From Tylenol] Allergy Unknown Please see Unverified 05/24/23 20:14 comment. Home Medications Medication Instructions Recorded Confirmed Type amlodipine 5 mg tablet 5 mg PO DAILY 05/24/23 06/27/23 History gabapentin 100 mg capsule 100 mg PO TID 05/24/23 06/27/23 History losartan 100 mg tablet 100 mg PO DAILY 05/24/23 06/27/23 History cholecalciferol (vitamin D3) 125 125 mcg PO DAILY #0 tabs 06/02/23 06/27/23 Rx mcg (5,000 unit) tablet cyanocobalamin (vitamin B-12) 500 1,000 mcg (2 x 500 mcg) PO QAM #0 06/02/23 06/27/23 Rx mcg tablet tabs nystatin 100,000 unit/gram topical 1 applic EXT BID #0 grams 06/02/23 06/27/23 Rx cream thiamine HCl (vitamin B1) 100 mg 200 mg (2 x 100 mg) PO BID #0 tabs 06/02/23 06/27/23 Rx tablet triamcinolone acetonide 0.1 % 1 applic EXT TID #0 grams 06/02/23 06/27/23 Rx topical cream donepezil 5 mg tablet 5 mg PO HS #30 tabs 06/24/23 06/27/23 Rx bacitracin zinc 500 unit/gram 1 applic topical UD 06/27/23 06/27/23 History topical ointment metoprolol tartrate 50 mg tablet 50 mg PO BID 06/27/23 06/27/23 History Past Med/Surg History Medical History Peripheral neuropathy Presence of cardiac pacemaker Urinary tract infection No pertinent family history HTN (hypertension) Surgical History No pertinent past surgical history Social History Smoking Status: Never smoker Second Hand Exposure: No; Do You Dip or Chew Tobacco: No; Tobacco Cessation Education Requested by Patient: No Hx Alcohol Use: No Hx Substance Use: No Preferred Language: Mongolian Communication Ability: Effective Ammonia Box Operator Required: No Beliefs That Will Affect Care: None Current Living Situation: Family Current Living Situation Comment: With daughter Other Information That Helps Us Care for You: No Feels Safe at Home: Yes Safety Concerns: Feels Safe At This Time Assistive Devices: Glasses and Walker Physical Exam Physical Exam: Physical Exam: General: In no acute distress, stated age, well-nourished, good hygiene HEENT: Normocephalic, atraumatic, no scleral icterus, pupils around round, symmetrical, and reactive to light, moist mucus membranes, trachea midline, no thyromegaly Chest/Pulm: No respiratory distress, symmetrical chest expansion, clear breath sounds throughout Cardiac: RRR, no murmurs noted Abdomen: Negative for ascites and bruising, normoactive bowel sounds, soft, non-tender to palpation throughout : Santos cath is in place and currently draining cloudy, yellow urine Musculoskeletal: Patient with pain on palpation of the right hip but without crepitus or step off, no other acute trauma on exam of the head, neck, thoracic/lumbar spine, left hip,. and BL LE's. Extremities: Radial, dorsalis pedis, and posterior tibial pulses are intact and symmetrical, no edema noted in the BL LE's Skin: Warm, dry, no rashes , lesions, or scars noted Neuro: Alert and oriented to person only, no focal defects, CN II-XII tested and intact,, no tremors noted Psych: No acute distress, calm and cooperative during the exam Results & Data Results & Data Vital Signs (Past 12 Hours) Vital Signs Temp Pulse Pulse Resp BP BP Pulse Ox 06/27/23 14:19 60 17 145/90 H 98 06/27/23 13:13 60 06/27/23 12:57 61 19 159/82 H 93 06/27/23 12:22 36.6 C 61 19 179/74 H 94 O2 Del Method 06/27/23 14:19 Room Air 06/27/23 13:13 06/27/23 12:57 Room Air 06/27/23 12:22 Room Air Laboratory Results Abnormal lab results 06/27/23 06/27/23 Range/Units 13:00 13:36 MPV 9.0 L (9.4-12.4) fL [place] # (Auto) 0.72 H (0.11-0.59) K/uL Creatinine 1.22 H (0.6-1.2) mg/dl Glucose 154 H (70-99(Fasting)) mg/dl Calcium 10.9 H (8.6-10.3) mg/dl Urine Appearance Turbid A (Clear) Urine Protein 2+ H (Negative) Urine Blood 3+ H (Negative) Urine Nitrite Positive A (Negative) Ur Leukocyte Esterase 3+ H (Negative) Urine WBC (Auto) >30 H (0-5) /hpf Urine RBC (Auto) >30 H (0-4) /hpf U Epithel Cells (Auto) >30 H (0-5) /lpf Urine Bacteria (Auto) 2+ H (Negative) Diagnostic Findings Femur X-Ray 06/27/23 12:26 SINGLE VIEW PELVIS; 3 VIEWS RIGHT FEMUR CLINICAL HISTORY: Fall. Right hip pain. FINDINGS: AP view of the pelvis with AP, frog-leg, and crosstable lateral views of the right femur are obtained. Correlation is made with pelvic CT dated 05/24/2023. The skeletal structures are osteopenic. There is a nondisplaced fracture of the right inferior pubic ring. No additional acute fracture is seen involving the hips or bony pelvis. There is no radiographic evidence of right femoral fracture. Severe osteoarthritic changes noted in the left hip. Moderate to severe arthritic change is seen in the right hip. Osteoarthritic change and chondrocalcinosis is seen in the right knee. Degenerative sclerosis is noted in the sacroiliac joints. Fusion hardware is seen at the lumbosacral junction. The overlying soft tissues are normal as imaged. Advanced atherosclerotic calcification is noted in the femoral arteries. IMPRESSION: 1. Nondisplaced fracture of the inferior right pubic ring. 2. No additional acute fracture is seen involving the hips or pelvis. 3. There is no radiographic evidence of right femoral fracture. Electronically signed by: Robert Cervantes M.D. 06/27/2023 1:23 PM Pelvis X-Ray 06/27/23 12:26 SINGLE VIEW PELVIS; 3 VIEWS RIGHT FEMUR CLINICAL HISTORY: Fall. Right hip pain. FINDINGS: AP view of the pelvis with AP, frog-leg, and crosstable lateral views of the right femur are obtained. Correlation is made with pelvic CT dated 05/24/2023. The skeletal structures are osteopenic. There is a nondisplaced fracture of the right inferior pubic ring. No additional acute fracture is seen involving the hips or bony pelvis. There is no radiographic evidence of right femoral fracture. Severe osteoarthritic changes noted in the left hip. Moderate to severe arthritic change is seen in the right hip. Osteoarthritic change and c hondrocalcinosis is seen in the right knee. Degenerative sclerosis is noted in the sacroiliac joints. Fusion hardware is seen at the lumbosacral junction. The overlying soft tissues are normal as imaged. Advanced atherosclerotic calcification is noted in the femoral arteries. IMPRESSION: 1. Nondisplaced fracture of the inferior right pubic ring. 2. No additional acute fracture is seen involving the hips or pelvis. 3. There is no radiographic evidence of right femoral fracture. Electronically signed by: Robert Cervantes M.D. 06/27/2023 1:23 PM ECG Additional Comments: Atrial-paced rhythm Left axis deviation Minimal voltage criteria for LVH, may be normal variant ( R in aVL ) Cannot rule out Anterior infarct (cited on or before 27-JUN-2023) Abnormal ECG When compared with ECG of 24-MAY-2023 18:08, QRS axis Shifted lef Code Status & VTE Plan Code Status Full code VTE Prophylaxis Plan VTE Prophylaxis will be ordered: Yes Supervising Physician Co-Signing Physician Notes Patient seen and examined, chart reviewed, case discussed with Joce Waldron PA-C and I agree with the assessment and plan as above except as otherwise noted Labs and images reviewed PG Care Time/CCT Total # of Minutes Spent Total Time Spent with Patient: Total time spent is greater than 50% in coordination of care (as documented) at patient's floor/unit and/or counseling patient: Coding [place] [address] INT INP/OBS CARE 3/75MIN Patient Type Established Medical Decision Making High Complexity Diagnoses Inferior pubic ramus fracture S32.599A Fall W19.XXXA Urinary tract infection N39.0 Memory loss R41.3 Dehydration E86.0 HTN (hypertension) I10
[2023-06-27] MEDS: LIDOCAINE 5% 1 PATCH TD STA (16:01)
[2023-06-27] MEDS: PLASMA-LYTE A 1,000 ML IV SCH (16:54)
[2023-06-27] MEDS: cefTRIAXone SODIUM 2,000 MG in DEXTROSE 5 % MINI-B 50 ML IV STA (16:56)
--- NOTE | 2023-06-27 19:00 | XRay Report ---
XR chest 1V portable HISTORY: Right pubic ring fracture. fall COMPARISON: Chest 05/29/2023. FINDINGS: No pneumothorax. No pleural effusions. No focal lung consolidations to suggest a pneumonia. No evidence for pulmonary edema. The heart remains mildly enlarged. Is left-sided dual-chamber pacem pascual. No acute fractures. IMPRESSION: No significant change compared to the prior study. No acute process. ACT 112: Negative or not required by law. Electronically signed by: Robert Kimball M.D. 06/27/2023 6:58 PM
[2023-06-27] MEDS: GABAPENTIN 100 MG CAP PO SCH (20:51)
[2023-06-27] MEDS: DONEPEZIL HCL 5 MG TAB PO SCH (20:51)
[2023-06-27] MEDS: ACETAMINOPHEN 325 MG TAB PO SCH (20:51)
[2023-06-27] MEDS: METOPROLOL TARTRATE 50 MG TAB PO SCH (21:03)
[2023-06-28] MEDS: LOSARTAN POTASSIUM 50 MG TAB PO SCH (08:09)
[2023-06-28] MEDS: amLODIPine BESYLATE 5 MG TAB PO SCH (08:09)
[2023-06-28] MEDS: ASPIRIN 325 MG ECTAB PO SCH (09:19)
[2023-06-28] MEDS: MoRPHine SULFATE 2 MG/ML CARP IV PRN (10:45)
--- NOTE | 2023-06-28 12:39 | Hospitalist Progress Note ---
Date of Service June 28, 2023 Assessment & Plan (1) Inferior pubic ramus fracture: Plan: - Presented with ongoing right hip pain and ambulatory dysfunction after experiencing a fall due to her rolling walker flipping - Sustained a Nondisplaced fracture of the inferior right pubic ring -- Age-related osteoporosis with current pathological fracture, R inferior pubic ramus - Continue scheduled tylenol with PRN IV morphine for severe pain - PT/OT recommend acute rehab upon discharge (2) Fall: Plan: -Mechanical in nature -- Most likely secondary to metabolic encephalopathy in the setting of acute UTI -No other acute trauma on exam, CXR negative (3) Urinary tract infection: Plan: -UA positive. Urine cultures pending. No previous hx of resistant organisms -Patient is normally only weak when she gets UTI's -Continue ceftriaxone -Attempt voiding trial prior to discharge (4) Memory loss: Plan: -Continue HS Donepezil -Will try to limit narcotics to prevent development of hospital acquired delirium (5) Dehydration: Plan: -Noted to be mildly dehydrated on exam and on labs on admission. Acute kidney failure -Kidney function is stable -Monitor daily volume status (6) HTN (hypertension): Plan: -Stable -Continue amlodipine, losartan, and metoprolol Plan CODE STATUS: Full code Admission and Anticipated Discharge Date Admission Date: June 27, 2023 Subjective Patient seen and evaluated at bedside where she was resting comfortably. She reports some hip pain, but states it is managed with pain medication. Specifically, no pain with rest but moderate pain with movement. She denies any urinary symptoms at this time. No other complaints currently. We had a discussion about possibly going to skilled rehab after discharge from the hospital, and she was agreeable to this. Physical Exam Physical Exam: General: No acute distress, nondiaphoretic, well-developed, well-nourished. Skin: The skin was without rashes, erythema, edema, or bruising. Cardiac: Regular rate and rhythm without murmurs gallops or rubs. Pulm: Clear to auscultation bilaterally without wheezes, rales or rhonchi. No retractions or accessory muscle use. Abdominal: Positive bowel sounds x 4. Soft, nontender, without masses or organomegaly. No guarding or rebound tenderness. Neuro: A&O x3. No focal neurological deficits. Results & Data Results & Data Vital Signs (Past 12 Hours) Vital Signs Temp Pulse Resp BP Pulse Ox O2 Del Method 06/28/23 06:18 37.1 C 62 18 153/71 H 93 Room Air Laboratory Results Reviewed CBC Reviewed chemistries Reviewed UA and urine culture PG Care Time/CCT Total # of Minutes Spent Total Time Spent with Patient: Total time spent is greater than 50% in coordination of care (as documented) at patient's floor/unit and/or counseling patient: Coding Level of Care Code 44606 SUB INP/OBS CARE 3/50MIN Diagnoses Inferior pubic ramus fracture S32.591A Encounter type: initial encounter Fracture type: closed Laterality: right Fall W19.XXXA Urinary tract infection N39.0 Memory loss R41.3 Dehydration E86.0 HTN (hypertension) I10 (1) Inferior pubic ramus fracture Encounter type: initial encounter Fracture type: closed Laterality: right Qualified Code(s): S32.591A - Other specified fracture of right pubis, initial encounter for closed fracture
[2023-06-28] MEDS: cefTRIAXone SODIUM 2,000 MG in DEXTROSE 5 % MINI-B 50 ML IV SCH (16:45)
[2023-06-28] MEDS ORDERED: POLYETHYLENE (MIRALAX) 17 GM PACK PO PRN (21:11)
[2023-06-29 15:07] LABS: Basophils # (auto) 0.04 K/uL (0.00-0.20); Basophils % (auto) 0.6 %; Eosinophils % (auto) 4.2 %; Hematocrit (blood only) 39.9 % (37.0-47.0); Hemoglobin 13.5 g/dl (12.0-16.0); Immature Granulocytes # (auto) 0.06 K/uL (0.01-0.20); Immature Granulocytes % (auto) 0.8 %; Lymphocytes # (auto) 1.51 K/uL (1.20-3.40); Lymphocytes % (auto) 21.1 %; Mean Corpuscular Hemoglobin 29.2 pg (25.0-34.0); Mean Corpuscular Hgb Conc 33.8 g/dL (32.0-36.0); Mean Corpuscular Volume 86.4 fL (80.0-100.0); Mean Platelet Volume 9.1 fL (9.4-12.4); Monocytes # (auto) 0.65 K/uL (0.11-0.59); Monocytes % (auto) 9.1 %; Neutrophils % (auto) 64.2 %; Platelet Count 321 K/uL (130-400); RDW Standard Deviation 41.1 fL (36.4-46.3); Red Blood Count 4.62 M/uL (4.20-5.40); White Blood Count 7.16 K/ul (4.8-10.8)
[2023-06-29 15:30] LABS: BUN Creatinine Ratio 19.1 (10-20); Calcium 10.3 mg/dl (8.6-10.3); Creatinine Clr Calc Pharmacy 36.3 ml/min; Est GFR (African American) 51.9 ml/min; Est GFR (Non-African American) 44.8 ml/min; Potassium 4.2 mmol/L (3.5-5.1)
[2023-06-29] MEDS: CIPROFLOXACIN 250 MG TAB PO SCH (15:36)
--- NOTE | 2023-06-29 15:49 | Hospitalist Progress Note ---
Date of Service June 29, 2023 Assessment & Plan (1) Inferior pubic ramus fracture: Plan: - Presented with ongoing right hip pain and ambulatory dysfunction after experiencing a fall due to her rolling walker flipping - Sustained a Nondisplaced fracture of the inferior right pubic ring -- Age-related osteoporosis with current pathological fracture, R inferior pubic ramus - Continue scheduled tylenol with PRN oxycodone for severe pain - PT/OT recommend acute rehab upon discharge (2) Urinary tract infection: Plan: -UA positive on admission. No previous hx of resistant organisms -Patient reports she is normally only weak when she gets UTI's -Urine culture positive for Klebsiella aerogenes. Continue with Cipro until 07/03/2023. -Attempt voiding trial prior to discharge (3) Fall: Plan: -Mechanical in nature -- Most likely secondary to metabolic encephalopathy in the setting of acute UTI -No other acute trauma on exam, CXR negative (4) Memory loss: Plan: -Continue HS Donepezil -Will try to limit narcotics to prevent development of hospital acquired delirium (5) Dehydration: Plan: -Noted to be mildly dehydrated on exam and on labs on admission. Acute kidney failure - Resolved. -Kidney function is stable -Monitor daily volume status (6) HTN (hypertension): Plan: -Stable -Continue amlodipine, losartan, and metoprolol Plan CODE STATUS: Full code Admission and Anticipated Discharge Date Admission Date: June 27, 2023 Subjective Patient seen and evaluated at bedside. She reports hip pain. She has not had any pain medication since yesterday because she has refused an IV. I ordered oral pain medication that will hopefully help relieve her pain. Additionally, her antibiotics were converted to oral as she is without an IV site currently. She continues to deny any urinary symptoms. She has no other complaints at this time. Physical Exam Physical Exam: General: No acute distress, nondiaphoretic, well-developed, well-nourished. Skin: The skin was without rashes, erythema, edema, or bruising. Cardiac: Regular rate and rhythm without murmurs gallops or rubs. Pulm: Clear to auscultation bilaterally without wheezes, rales or rhonchi. No r etractions or accessory muscle use. Abdominal: Positive bowel sounds x 4. Soft, nontender, without masses or organomegaly. No guarding or rebound tenderness. Neuro: A&O x3. No focal neurological deficits. Results & Data Results & Data Vital Signs (Past 12 Hours) Vital Signs Temp Pulse Resp BP Pulse Ox O2 Del Method 06/29/23 14:38 36.7 C 60 17 119/73 91 Room Air 06/29/23 07:01 36.7 C 60 17 135/75 90 Room Air Laboratory Results Reviewed CBC Reviewed chemistries Reviewed urine culture PG Care Time/CCT Total # of Minutes Spent Total Time Spent with Patient: Total time spent is greater than 50% in coordination of care (as documented) at patient's floor/unit and/or counseling patient: Coding Level of Care Code 40013 SUB INP/OBS CARE 2/35MIN Diagnoses Inferior pubic ramus fracture S32.591A Encounter type: initial encounter Fracture type: closed Laterality: right Urinary tract infection N39.0 Fall W19.XXXA Memory loss R41.3 Dehydration E86.0 HTN (hypertension) I10 (1) Inferior pubic ramus fracture Encounter type: initial encounter Fracture type: closed Laterality: right Qualified Code(s): S32.591A - Other specified fracture of right pubis, initial encounter for closed fracture
[2023-06-29] MEDS: LIDOCAINE 5% 1 PATCH TD STA (16:07)
[2023-06-30 06:20] LABS: Basophils # (auto) 0.04 K/uL (0.00-0.20); Basophils % (auto) 0.5 %; Eosinophils # (auto) 0.25 K/uL (0.00-0.50); Eosinophils % (auto) 3.4 %; Hematocrit (blood only) 39.9 % (37.0-47.0); Hemoglobin 13.2 g/dl (12.0-16.0); Immature Granulocytes # (auto) 0.05 K/uL (0.01-0.20); Immature Granulocytes % (auto) 0.7 %; Lymphocytes # (auto) 1.43 K/uL (1.20-3.40); Lymphocytes % (auto) 19.4 %; Mean Corpuscular Hemoglobin 28.6 pg (25.0-34.0); Mean Corpuscular Hgb Conc 33.1 g/dL (32.0-36.0); Mean Corpuscular Volume 86.6 fL (80.0-100.0); Mean Platelet Volume 9.1 fL (9.4-12.4); Monocytes # (auto) 0.48 K/uL (0.11-0.59); Monocytes % (auto) 6.5 %; Neutrophils # (auto) 5.14 K/uL (1.40-6.50); Neutrophils % (auto) 69.5 %; Platelet Count 284 K/uL (130-400); RDW Coefficient of Variation 12.8 % (11.5-14.5); RDW Standard Deviation 40.2 fL (36.4-46.3); Red Blood Count 4.61 M/uL (4.20-5.40); White Blood Count 7.39 K/ul (4.8-10.8)
[2023-06-30 06:50] LABS: Potassium 4.7 mmol/L (3.5-5.1)
[2023-06-30 06:55] LABS: BUN Creatinine Ratio 19.8 (10-20); Creatinine Clr Calc Pharmacy 39.5 ml/min; Est GFR (African American) 57.6 ml/min; Est GFR (Non-African American) 49.7 ml/min
[2023-06-30] MEDS: LIDOCAINE 5% 1 PATCH TD SCH (08:17)
[2023-06-30] MEDS: oxyCODONE HCL IR 5 MG TAB (IMMEDIATE RELEASE) PO PRN (10:59)
--- NOTE | 2023-06-30 12:57 | Electrocardiogram Report ---
Test Reason : Blood Pressure : / mmHG Vent. Rate : 060 BPM Atrial Rate : 060 BPM P-R Int : 000 ms QRS Dur : 086 ms QT Int : 380 ms P-R-T Axes : 000 -33 015 degrees QTc Int : 380 ms Atrial-paced rhythm Left axis deviation Minimal voltage criteria for LVH, may be normal variant ( R in aVL ) Cannot rule out Anterior infarct (cited on or before 27-JUN-2023) Abnormal ECG When compared with ECG of 24-MAY-2023 18:08, QRS axis Shifted left Confirmed by Dio Salinas ([id number]) on 06/30/2023 12:56:47 PM Referred By: Confirmed By:Dio Salinas
--- NOTE | 2023-06-30 16:35 | Hospitalist Progress Note ---
Date of Service June 30, 2023 Assessment & Plan (1) Inferior pubic ramus fracture: Plan: - Presented with ongoing right hip pain and ambulatory dysfunction after experiencing a fall due to her rolling walker flipping - Sustained a Nondisplaced fracture of the inferior right pubic ring -- Age-related osteoporosis with current pathological fracture, R inferior pubic ramus - Continue scheduled tylenol with PRN oxycodone for severe pain - PT/OT recommend acute rehab upon discharge. Waiting for placement. (2) Urinary tract infection: Plan: -UA positive on admission. No previous hx of resistant organisms -Patient reports she is normally only weak when she gets UTI's -Urine culture positive for Klebsiella aerogenes. Continue with Cipro until 07/03/2023. -Attempt voiding trial prior to discharge (3) Fall: Plan: -Mechanical in nature -- Most likely secondary to metabolic encephalopathy in the setting of acute UTI -No other acute trauma on exam, CXR negative (4) Memory loss: Plan: -Continue HS Donepezil -Will try to limit narcotics to prevent development of hospital acquired delirium (5) Dehydration: Plan: -Noted to be mildly dehydrated on exam and on labs on admission. Acute kidney failure - Resolved. -Kidney function is stable -Monitor daily volume status (6) HTN (hypertension): Plan: -Stable -Continue amlodipine, losartan, and metoprolol Plan CODE STATUS: Full code Admission and Anticipated Discharge Date Admission Date: June 27, 2023 Subjective Patient seen and evaluated at bedside with daughter. She reports no complaints other than wanting to leave the hospital. We discussed that we are waiting for a rehab placement, which the patient is agreeable to. Daughter reported that the patient saw her PCP on [facility] who ordered a CT of her abdomen, however the daughter did not know what for. The daughter was hoping she could get the CT scan done while inpatient. I have not been able to find any documentation of a visit with a PCP on [facility] or an order for a CT scan. It is documented in her chart that patient's PCP is Tiffany Carranza in [place]. Physical Exam Physical Exam: General: No acute distress, nondiaphoretic, well-developed, well-nourished. Skin: The skin was without rashes, erythema, edema, or bruising. Cardiac: Regular rate and rhythm without murmurs gallops or rubs. Pulm: Clear to auscultation bilaterally without wheezes, rales or rhonchi. No retractions or accessory muscle use. Abdominal: Positive bowel sounds x 4. Soft, nontender, without masses or organomegaly. No guarding or rebound tenderness. Neuro: A&O x3. No focal neurological deficits. Results & Data Results & Data Vital Signs (Past 12 Hours) Vital Signs Temp Pulse Resp BP Pulse Ox O2 Del Method 06/30/23 15:27 36.3 C L 60 16 122/70 94 Room Air 06/30/23 08:13 69 120/67 06/30/23 07:10 36.2 C L 60 16 145/78 H 92 Room Air Laboratory Results Reviewed CBC Reviewed CMP PG Care Time/CCT Total # of Minutes Spent Total Time Spent with Patient: Total time spent is greater than 50% in coordination of care (as documented) at patient's floor/unit and/or counseling patient: Coding Level of Care Code 77572 SUB INP/OBS CARE 2/35MIN Diagnoses Inferior pubic ramus fracture S32.591A Encounter type: initial encounter Fracture type: closed Laterality: right Urinary tract infection N39.0 Fall W19.XXXA Memory loss R41.3 Dehydration E86.0 HTN (hypertension) I10 (1) Inferior pubic ramus fracture Encounter type: initial encounter Fracture type: closed Laterality: right Qualified Code(s): S32.591A - Other specified fracture of right pubis, initial encounter for closed fracture
[2023-07-01] MEDS ORDERED: Nursing to Pharmacy Communication SCH (01:45)
[2023-07-01 12:14] LABS: Hematocrit (blood only) 41.4 % (37.0-47.0); Mean Corpuscular Hemoglobin 28.9 pg (25.0-34.0); Mean Corpuscular Hgb Conc 33.8 g/dL (32.0-36.0); Mean Corpuscular Volume 85.5 fL (80.0-100.0); Mean Platelet Volume 8.9 fL (9.4-12.4); Platelet Count 321 K/uL (130-400); RDW Standard Deviation 40.1 fL (36.4-46.3); Red Blood Count 4.84 M/uL (4.20-5.40); White Blood Count 7.31 K/ul (4.8-10.8)
[2023-07-01 12:22] LABS: BUN Creatinine Ratio 25.5 (10-20); Calcium 10.6 mg/dl (8.6-10.3); Creatinine Clr Calc Pharmacy 37.6 ml/min; Est GFR (African American) 54.3 ml/min; Est GFR (Non-African American) 46.8 ml/min; Potassium 4.3 mmol/L (3.5-5.1)
--- NOTE | 2023-07-01 13:07 | Hospitalist Progress Note ---
Date of Service July 01, 2023 Assessment & Plan (1) Inferior pubic ramus fracture: Plan: Suffered a mechanical fall at home. Supportive care. Pain control measures. This appears to be a pathologic fracture due to underlying osteoporosis. (2) Urinary tract infection: Plan: Klebsiella isolated. Currently on oral Cipro therapy through July 02. (3) Fall: Plan: Mechanical in nature with resultant pelvic fracture. Continue OT and PT. (4) Memory loss: Plan: Stable. Continue HS Donepezil (5) Dehydration: Plan: Mild on admission. Resolved with IV fluids. Mild JUAN present on admission has resolved. Monitor intake and output. Serial labs (6) HTN (hypertension): Plan: Stable. Continue amlodipine, losartan, and metoprolol Plan Anticipate discharge to [facility] when arrangements are finalized Admission and Anticipated Discharge Date Admission Date: June 27, 2023 Subjective Alert and oriented. No new problems. I spoke to her daughter, Simona, by phone and answered all questions. She is medically stable for discharge to [facility] when arrangements are finalized. Santos catheter will be removed today, June 30 Review of Systems 2 Review of Systems: Constitutional-no fever or chills ENT-no blurred vision, no double vision, no epistaxis, no sore throat Respiratory-no cough, no wheezing, no shortness of breath Cardiac-no palpitations, no chest pain, no syncope GI-no nausea, vomiting, diarrhea, melena, hematochezia -no urinary retention, no urinary incontinence, no dysuria, no hematuria Musculoskeletal-no joint pain, no muscle tenderness Skin-no bruising, no rashes, no pruritus Neuro-no isolated weakness, no paresthesia, no weakness Psych-no depression, no anxiety Physical Exam 2 Physical Exam: General-alert and oriented x3, no fever, no chills HEENT-head atraumatic and normocephalic, pupils equal and reactive to light, extraocular muscles intact Neck-no lymphadenopathy or thyromegaly, trachea midline Chest-clear to auscultation. No rales, wheezing or rhonchi Cardiac-regular rate and rhythm, normal S1 and S2 Abdomen-normal bowel sounds, nontender, no hepatosplenomegaly GUFoley catheter in place. No hematuria Extremities-no cyanosis, clubbing, or edema Neuro-cranial nerves II through XII intact, motor and sensory function within normal limits, strength symmetrical, no focal deficits Psych-normal affect, normal mood Results & Data Results & Data Vital Signs (Past 12 Hours) Vital Signs Temp Pulse Resp BP Pulse Ox O2 Del Method 07/01/23 08:44 71 113/67 07/01/23 07:54 36.7 C 60 15 123/65 92 Room Air 07/01/23 07:30 Room Air Laboratory Results 07/01/23 11:48 07/01/23 11:48 PG Care Time/CCT Total # of Minutes Spent Total Time Spent with Patient: Total time spent is greater than 50% in coordination of care (as documented) at patient's floor/unit and/or counseling patient: Coding Level of Care Code 46989 SUB INP/OBS CARE 3/50MIN Diagnoses Inferior pubic ramus fracture S32.591A Encounter type: initial encounter Fracture type: closed Laterality: right Urinary tract infection N39.0 Fall W19.XXXA Memory loss R41.3 Dehydration E86.0 HTN (hypertension) I10 (1) Inferior pubic ramus fracture Encounter type: initial encounter Fracture type: closed Laterality: right Qualified Code(s): S32.591A - Other specified fracture of right pubis, initial encounter for closed fracture
--- NOTE | 2023-07-01 14:07 | Discharge Summary ---
Date of Service July 01, 2023 Admission HPI Per Admitting Provider Zuly is an 87-year-old female with a past medical history including memory loss, hypertension, peripheral neuropathy, Parkinsonism, vitamin D deficiency, status post pacer placement and urinary tract infection who presented to the [facility] ED on 06/27/23 with her daughter due to a fall last night with ongoing right hip pain and ambulatory dysfunction. Vitals remained stable. Labs were significant for a cr of 1.22 (baseline is near 0.8), calcium of 10.9, and UA with turbid appearance, 2+ protein, 3+ blood, nitrite positive, 3+ Leukocyte esterase, >30 WBC, RBC, and epithelial cells, and 2+ bacteria. Xray of the right femur and pelvis was read as "1. Nondisplaced fracture of the inferior right pubic ring. 2. No additional acute fracture is seen involving the hips or pelvis. 3. There is no radiographic evidence of right femoral fracture.". Prior to admission the patient was given 1gm IV tylenol. At the time of the exam the patient was sitting in bed in no acute distress with her Daughter/POA bedside. History was mainly obtained from the patient's daughter to the patient's baseline hx of memory loss. The patient has been living with her daughter and family over the past few weeks. Last night the patient was walking to the bathroom using her rolling walker when she felt weak. She sat on the small seat attached to the rolling walker. Her daughter tried to pull the rolling walker over a small ledge between floor but one of the walker wheels became stuck and cause the walker to tip. The patient landed on her right side and did not hit her head or lose consciousness. She has been experiencing right hip pain since the fall. Family was able to lift her into bed last night, but the patient was in too much pain today to safely ambulate, even with help. When asked, the patient denies urinary symptoms. However, the patient's daughter explains that the patient never has symptoms when she gets UTI's. They deny recent fever, chills, chest pain, SOB, cough, abd pain, nausea, vomiting, hematuria, melena, LE swelling. She is a full code and her daughter is her POA. Please refer to Dr. Balbuena's attestation for any changes to the treatment plan Principal Diagnosis Mechanical fall, pelvic fracture, acute Klebsiella UTI, acute kidney injury, hypovolemia Discharge Exam General-alert and oriented x3, no fever, no chills HEENT-head atraumatic and normocephalic, pupils equal and reactive to light, extraocular muscles intact Neck-no lymphadenopathy or thyromegaly, trachea midline Chest-clear to auscultation. No rales, wheezing or rhonchi Cardiac-regular rate and rhythm, normal S1 and S2 Abdomen-normal bowel sounds, nontender, no hepatosplenomegaly GUFoley catheter in place. No hematuria Extremities-no cyanosis, clubbing, or edema Neuro-cranial nerves II through XII intact, motor and sensory function within normal limits, strength symmetrical, no focal deficits Psych-normal affect, normal mood Discharge Data Allergies Allergy/AdvReac Type Severity Reaction Status Date / Time acetaminophen [From Tylenol] Allergy Unknown Please see Unverified 05/24/23 20:14 comment. Consultations 06/27/23 15:23 ED Decision to Admit Stat Hospital Course (1) Inferior pubic ramus fracture: Suffered a mechanical fall at home. Supportive care. Pain control measures. This appears to be a pathologic fracture due to underlying osteoporosis. (2) Urinary tract infection: Klebsiella isolated. Currently on oral Cipro therapy through July 02. (3) Fall: Mechanical in nature with resultant pelvic fracture. Continue OT and PT. (4) Memory loss: Stable. Continue HS Donepezil (5) Dehydration: Mild on admission. Resolved with IV fluids. Mild JUNA present on admission has resolved. Monitor intake and output. Serial labs (6) HTN (hypertension): Stable. Continue amlodipine, losartan, and metoprolol Plan Discharge to [facility] today, June 30 Total Time Total Time Spent Total Time Spent (In Minutes): 45 minutes Discharge Plan Discharge Items Patient Disposition: Transfer Inpatient Rehab Fac Reason For Visit: FALL, PUBIC RAMI FRACTURE, AMBULATORY DYSFUNCTION Discharge Diagnosis: Mechanical fall, pubic ramus fracture , Klebsiella UTI, hypovolemia, acute kidney injury Activity: Resume your previous activity Non-emergency contact: Primary Care Provider Call non-emergency contact if: your symptoms worsen Follow-up/Referrals: Tiffany Carranza DO [Primary Care Provider] - Diet: Regular and Heart Healthy Addtl Attending Provider Instructions: Stay on oral ciprofloxacin antibiotic through July 02 Pending Studies at Discharge: No Stand-Alone Forms: My [facility] Skilled Items Patient informed of condition?: Yes DNR: Yes Discharge Level of Care: Acute rehab Communicable Disease: No Discharge Prognosis: Stable Lines: None Urinary Catheter: No Medications and DC Order Prescriptions: New aspirin 81 mg capsule 81 mg PO DAILY Qty: 1 0RF oxycodone 5 mg Tablet 5 mg PO Q4H PRNQty: 0 0RF ciprofloxacin HCl 250 mg Tablet 250 mg PO BID Qty: 0 0RF Continued donepezil 5 mg tablet 5 mg PO HS Qty: 30 5RF amlodipine 5 mg tablet 5 mg PO DAILY gabapentin 100 mg capsule 100 mg PO TID losartan 100 mg tablet 100 mg PO DAILY nystatin 100,000 unit/gram Cream 1 applic EXT BID Qty: 0 0RF triamcinolone acetonide 0.1 % Cream 1 applic EXT TID Qty: 0 0RF cholecalciferol (vitamin D3) 125 mcg (5,000 unit) Tablet 125 mcg PO DAILY Qty: 0 0RF cyanocobalamin (vitamin B-12) 500 mcg Tablet 1,000 mcg PO QAM Qty: 0 0RF thiamine HCl (vitamin B1) 100 mg Tablet 200 mg PO BID Qty: 0 0RF metoprolol tartrate 50 mg tablet 50 mg PO BID bacitracin zinc 500 unit/gram ointment 1 applic TOPICAL UD Rx Instructions: otc Discharge Orders: Discharge Order (Routine); Ordered 07/01/23 Ordered By: Escobar Mann Admission Data Admit Date/Time: 06/27/23 15:22 Attending Provider: Escobar Mann Admit Provider: David Balbuena Primary Care Provider: Tiffany Carranza Other Providers: David Balbuena; [facility] Coding Level of Care Code 84536 INP/OBS DISCH >30 MIN Diagnoses Inferior pubic ramus fracture S32.591A Encounter type: initial encounter Fracture type: closed Laterality: right Urinary tract infection N39.0 Fall W19.XXXA Memory loss R41.3 Dehydration E86.0 HTN (hypertension) I10
[2023-07-01] MEDS ORDERED: CIPROFLOXACIN 250 MG TAB PO SCH (21:00)
== END 2023-07-01 16:47 | DRG 543 ==
LOC: ED 12:14 → 3E 15:22 → SUATTDRO 15:22 → 3E 16:08